=== PATIENT | male | born 1965 | race Caucasian/White ===

== ENCOUNTER → 2016-08-03 | Outpatient (CLI) | payer OTHER ==
[~2016-08-03] MED LIST: DICL1GEL28 TOP; ONDA4TAB7 SL
[2016-08-03 12:32] LABS: BASO % 0.7 %; BASO ABS # 0.05 K/uL (0-0.2); COMPLETE YES; EOS % 2.5 %; HEMATOCRIT 47.1 % (42-52); IG% 0.7 %; LYMPH % 27.7 %; LYMPH ABS # 1.91 K/uL (1.2-3.4); MEAN CELL VOLUME 87.5 fL (80-100); MEAN CORPUSCULAR HEMOGLOBIN 29.7 pg (25-34); MEAN PLATELET VOLUME 11.1 fL (7.4-10.4); MONO % 11.6 %; NEUT % 56.8 %; PLATELET COUNT 207 K/uL (130-400); RED BLOOD COUNT 5.38 M/uL (4.7-6.1); WHITE BLOOD COUNT 6.89 K/uL (4.8-10.8)
[2016-08-03 12:50] LABS: CHOLESTEROL/HDL RATIO 3.7; PROSTATE SPECIFIC ANTIGEN 0.792 ng/ml (0.000-4.000); THYROID STIMULATING HORMONE 1.45 uIu/ml (0.300-4.500)
[2016-08-03 13:24] LABS: ESTIMATED AVERAGE GLUCOSE 151 mg/dl; HA1C FLAG Normal (Normal)
== END | disposition home or self-care (01) ==
LOC: C.LABBFT 09:46
PROVIDERS: ATTEND Physician Assistant
DX: E78.00 Pure hypercholesterolemia, unspecified (principal); R79.89 Other specified abnormal findings of blood chemistry; K76.0 Fatty (change of) liver, not elsewhere classified; Z12.5 Encounter for screening for malignant neoplasm of prostate; E11.65 Type 2 diabetes mellitus with hyperglycemia

== ENCOUNTER → 2017-02-25 | Outpatient (CLI) | payer OTHER ==
[2017-02-25 12:35] LABS: BLOOD UREA NITROGEN 16 mg/dl (7-18); BUN/CREATININE RATIO 14.3 (10-20); CALCIUM 9.4 mg/dl (8.5-10.1); CARBON DIOXIDE 26 mmol/L (21-32); CHLORIDE 100 mmol/L (98-107); CREATININE 1.14 mg/dl (0.60-1.40); GLUCOSE 164 mg/dl (70-99); POTASSIUM 4.6 mmol/L (3.5-5.1); SODIUM 134 mmol/L (136-145)
[2017-02-25 12:36] LABS: ALB/GLOB RATIO 1.2 (0.9-2); ALKALINE PHOSPHATASE 66 U/L (45-117); ALT/SGPT 65 U/L (12-78); AST/SGOT 27 U/L (15-37); CHOLESTEROL 157 mg/dl (0-200); CHOLESTEROL/HDL RATIO 3.6; HDL CHOLESTEROL 44 mg/dl; LDL CHOLESTEROL CALCULATED 90 mg/dl; TRIGLYCERIDES 114 mg/dl (0-150); VERY LOW DENSITY LIPOPROT CALC 23 mg/dl
[2017-02-25 12:44] LABS: CREATININE RANDOM URINE 92.1 mg/dl
[2017-02-25 14:11] LABS: ESTIMATED AVERAGE GLUCOSE 166 mg/dl; HA1C FLAG Normal (Normal)
== END | disposition home or self-care (01) ==
LOC: C.LABBFT 09:13
PROVIDERS: ATTEND Physician Assistant
DX: E11.9 Type 2 diabetes mellitus without complications (principal); E78.00 Pure hypercholesterolemia, unspecified

== ENCOUNTER 2023-01-01 08:31 | Observation (INO) ==
--- NOTE | 2022-12-20 09:00 | PAT Medication Instructions ---
Medication Instructions Date of Service December 20, 2022 Home Medications Medication Instructions Recorded blood sugar diagnostic (batteriiTouch #3 ea 03/21/22 Verio test strips) lancets 33 gauge (OneTouch [place] #400 ea 03/21/22 Plus Lancet) pravastatin 20 mg tablet 20 mg PO HS 90 days #90 tabs 03/21/22 metformin 500 mg tablet,extended 1,000 mg PO BID 90 days #360 tabs 05/16/22 release 24 hr pravastatin 20 mg tablet 20 mg PO HS metformin 500 mg tablet,extended release 24 hr 1,000 mg PO BID lisinopril 5 mg tablet 5 mg PO QAM sitagliptin phosphate 100 mg tablet (Januvia) 100 mg PO QPM DO NOT take the morning of surgery lisinopril 5 mg tablet 5 mg PO QAM Take evening before surgery pravastatin 20 mg tablet 20 mg PO HS sitagliptin phosphate 100 mg tablet (Januvia) 100 mg PO QPM Other Notes NOTHING TO EAT OR DRINK AFTER MIDNIGHT. If you have any questions please call us at [phone] or [phone] or [phone] or [phone]
--- NOTE | 2022-12-21 10:23 | Anesthesiology Consultation ---
Date of Service December 21, 2022 Assessment & Plan (1) Encounter for pre-operative examination: - Check BSG AM DOS - Infectious disease screening: Per assessment on 12/21/22: No known infectious disease contacts or current infectious disease symptoms. No noted Covid positive test result in past 90 days. - Outpatient joint assessment: Pt currently scheduled for inpatient pathway. Patient scheduled for Right Unicompartmental Knee Versus TKA. If surgeon feels surgery can be done through outpatient pathway from his perspective, patient medically would be acceptable candidate for outpatient joint program from anesthesia standpoint pending surgeon's office assessment that patient is motivated, has good support and completes [facility] Program preop requirements. Chart Review Chart Review: Acceptable Risk for Surgery and Patient seen in Pre Admission Testing Teaching & Discussion Pre-Anesthesia Teaching/Discussion Notes: Instructed NPO after midnight before surgery,except medications with 15 cc of water. Medication instructions provided according to the PAT guidelines. History Surgery Operation Date: 01/01/23 12:30 Proposed Procedures p Right Unicompartmental Knee Versus - Mauri Barba MD s Total Knee Arthroplasty - Mauri Barba MD Height/Weight Height: 5 ft 10 in Weight: 101 kg Allergies Allergy/AdvReac Type Severity Reaction Status Date / Time celecoxib Allergy Intermediate Headache, Verified 12/20/22 13:36 shaking, nausea atorvastatin Allergy Unknown Unknown Verified 12/19/22 11:47 dulaglutide [From Trulicity] AdvReac Mild Nausea Verified 12/19/22 11:47 linagliptin [From Tradjenta] AdvReac Mild Nausea Verified 12/19/22 11:47 Medications Home Medications Medication Instructions Recorded Confirmed Last Taken blood sugar diagnostic (OneTouch #3 ea 03/21/22 07/11/22 Unknown Verio test strips) lancets 33 gauge (OneTouch [place]ica #400 ea 03/21/22 07/11/22 Unknown Plus Lancet) pravastatin 20 mg tablet 20 mg PO HS 90 days #90 tabs 03/21/22 12/19/22 Unknown metformin 500 mg tablet,extended 1,000 mg PO BID 90 days #360 tabs 05/16/22 12/19/22 Unknown release 24 hr lisinopril 5 mg tablet 5 mg PO QAM 12/19/22 12/19/22 Unknown sitagliptin phosphate 100 mg 100 mg PO QPM 12/19/22 12/19/22 Unknown tablet (Januvia) Wheeled Walker #1 ea 12/21/22 12/21/22 Unknown Past Medical History Medical History Diabetes NIDDM Fatty liver History of kidney stones Hypercholesterolemia Hypertension Overweight Exercise / Class Metabolic Activity II 4-5 Yardwork/Stairs/Walk up hill (one FS (no CP, no SOB)) Past Family History Family History Mother Guillain Lorenzana syndrome Diabetes Hyperlipidemia Stroke Father Myocardial infarction Glaucoma Grandfather Prostate cancer Other Coronary heart disease FH: CABG (coronary artery bypass surgery) No family history of adverse response to anesthesia Denies family history of Ovarian cancer Breast cancer Colorectal cancer Past Surgical History Surgical History History of anesthesia reaction "Difficulty waking" after right knee arthroscopy History of tooth extraction History of wisdom tooth extraction S/P right knee arthroscopy [facility], 2003 Past Anesthesia History No Family Hx of Anesthesia Complications and Other ("Difficulty waking" after right knee arthroscopy) History of PONV No Hx of PONV and No Hx of Motion Sickness Social History Smoking Status: Never smoker Do You Dip or Chew Tobacco: No (quit 2 yrs ago) Hx Alcohol Use: No Alcohol type: beer Hx Substance Use: No substance use type: does not use Review of Systems Patient denies chest pain, shortness of breath, dyspnea on exertion, fever, chi lls, cough, wheezing, palpitations. Physical Exam Vital Signs VITALS BP 132/76 P 68 TEMP 98.8 SP02 96%RA RESP 16 PHYSICAL Full cervical extension range of motion. Full TMJ range of motion. TMD 3 finger breaths Mallampati Score 3 Dentition: several missing molars, left lower side "repaired" Lungs: clear throughout to auscultation Cardiac: regular rate and rhythm, no murmurs noted Spine: normal Carotid arteries: negative bruit Extremities: no LE edema Large mehta- patient agreeable to trim short Lab Results Anesthesia Preop Results Results Anesthesia Widget: WBC 9.54 K/ul (4.8-10.8) 12/21/22 Hgb 15.2 g/dl (14.0-18.0) 12/21/22 Hct 45.3 % (42.0-52.0) 12/21/22 Plt 216 K/uL (130-400) 12/21/22 Na 139 mmol/L (136-145) 12/21/22 K 5.1 mmol/L (3.5-5.1) 12/21/22 Cl 104 mmol/L (98-107) 12/21/22 CO2 28 mmol/L (21-32) 12/21/22 BUN 17 mg/dl (6-23) 12/21/22 Creat 1.05 mg/dl (0.6-1.4) 12/21/22 Glucose Level 173 mg/dl (70-99(Fasting)) H 12/21/22 PT 11.0 Seconds (9.0-12.0) 12/21/22 PTT 26.9 Seconds (21.0-31.0) 12/21/22 INR 1.0 (0.9-1.1) 12/21/22 HA1c 7.6 % (4.5-5.6) H 12/21/22 Blood Type O Positive 12/21/22 Antibody Screen NEGATIVE 12/21/22 Testing Electrocardiogram Date: 12/21/22 NSR at 66bpm. Chest X-Ray Date: 12/21/22 FINDINGS: No lines and tubes are seen. The cardiomediastinal silhouette is normal. The lungs are clear. No evidence of pleural effusion or pneumothorax. IMPRESSION: No acute chest disease.
[~2023-01-01 08:31] MED LIST changes: +ACETAMINOPHEN 500 MG TAB PO SCH; +BUPIVACAINE 0.5 % 5 MG/1 ML PF 10ML VIAL ONE; +BUPIVACAINE LIPOSOME/PF 266 MG, BUPIVACAINE/EPINEPHRINE 50 ML, SODIUM CHLORIDE 0.9% PF ... INFIL SCH; -DICL1GEL28 TOP; +FAMOTIDINE 20 MG TAB PO SCH; +LR 500ML BOLUS, THEN 15ML/HR IV SCH; +LR 60ML/HR IV SCH; +METOCLOPRAMIDE HCL 10 MG TABLET PO SCH; -ONDA4TAB7 SL; +ROPIVACAINE 0.5% 5 MG/ML 30 ML VIAL ONE; +Scopolamine 1 MG TDSY TD SCH; +TRANEXAMIC ACID 1,000 MG **IV Intra-op IV SCH; +[UNRECOGNIZED DRUG - REMARK] SCH; +ceFAZolin 2000MG 2,000 MG/15 ML SYR IV SCH
--- NOTE | 2023-01-01 08:58 | History & Physical Bridge Note ---
Date of Service January 01, 2023 History & Physical Bridge Note I have examined the patient, reviewed the History & Physical and in the interval since the performance of the History & Physical I have noted the following changes of clinical significance: no changes noted
[2023-01-01] MEDS ORDERED: PROPOFOL IV EMULSION 10 MG/ML 20 ML VIAL IV ONE ×2 (09:48→10:07)
[2023-01-01] MEDS ORDERED: MIDAZOLAM HCL 1 MG/ML 2ML VIAL ONE (09:49)
[2023-01-01] MEDS ORDERED: fentaNYL citrate PF 100 MCG/2 ML VIAL ONE (09:49)
[2023-01-01] MEDS ORDERED: fentaNYL citrate PF 100 MCG/2 ML VIAL IV PRN (10:01)
[2023-01-01] MEDS ORDERED: ONDANSETRON INJ 2 MG/ML 2 ML VIAL IV PRN ×2 (10:01→13:36)
[2023-01-01] MEDS ORDERED: ePHEDrine sulfate 50 MG/ML AMP IV PRN (10:01)
[2023-01-01] MEDS ORDERED: ATROPINE SULFATE 0.1 MG/ML 10ML SYR IV PRN (10:01)
[2023-01-01] MEDS ORDERED: LIDOCAINE 2% 2 ML VIAL/AMP(20MG/ML) INFIL ONE (10:07)
[2023-01-01] MEDS ORDERED: BUPIVACAINE/EPINEPHRINE 0.25% 1:200,000 30 ML VIAL ONE (10:09)
[2023-01-01] MEDS ORDERED: SODIUM CHLORIDE 0.9% PF 50 ML VIAL ONE (10:10)
[2023-01-01] MEDS ORDERED: BUPIVACAINE LIPOSOME 1.3% 266 MG/20 ML VIAL ONE (10:10)
[2023-01-01] MEDS ORDERED: ePHEDrine sulfate 50 MG/5 ML SYR ONE (12:22)
--- NOTE | 2023-01-01 12:47 | Operative Report ---
PG Post Operative Report Pre & Post Diagnosis Operation Date: 01/01/23 10:40 Pre-Op Diagnosis: Right Knee Degenerative Joint Disease Post-Op Diagnosis: Right Knee Degenerative Joint Disease I identified the patient and participated in the time-out.: Yes Procedure Operation Date: 01/01/23 10:40 Actual Procedures p Right Unicompartmental Knee (Right) - Mauri Barba MD Surgeon Mauri Barba MD Records Technician Elvin De Dios PA-C Estimated Blood Loss 25 Findings Consistent with Post-Op Diagnosis Operative findings were advanced medial compartment arthritis. Full-thickness cartilage loss of the medial femoral condyle. Very mild trochlear wear. No significant in the lateral compartment. ACL was intact. Specimens Right knee sent for pathology. Anesthesia Type Spinal MAC Complications none Disposition Accompanied Patient To Recovery: No Indications Patient is a 57-year-old gentleman said he has several year history of increasing right medial knee pain discomfort. He had a previous knee arthroscopy. Has been to extensive conservative treatment. X-rays revealed some fairly mild radiographic DJD. MRI suggested extensive edema of the medial femoral condyle medial tibial plateau. He had a degenerate medial meniscus tear. The rest of his knee looked pretty good. His symptoms localized the medial side of his knee as patient is indicated for partial knee replacement. Description of Procedure Operative implants consist of: 1. Biomet [place] size medium femoral component. 2. Biomet [place] right medial size D tibial tray. 3. 5 mm mobile-bearing polyethylene insert. The patient was taken the operating, identified, placed on the operating table supine position. Contractors were properly padded. IV antibiotics tried by anesthesia team. Spinal anesthetic and abductor canal block had provided holding area. A right thigh tent was then placed. The right lower extremity then prepped draped in usual sterile fashion. The right leg was elevated exsanguinated with use of an Esmarch in terms playset 300 mmHg. An anterior process of the knee was then performed through a longitudinal incision beginning at the superior pole the patella and extending just medial to the tibial tubercle. Sharp dissection Through subcutaneous tissue. Subcutaneous tissue was mobilized. A medial parapatellar arthrotomy incision was made. Slight subperiosteal dissection was carried out medially. I did resect some of the fat pad. I then examined the knee and the medial compartment was fairly worn. Everything else looked pretty good so we proceeded with a partial knee replacement. The femur was then sized to a size medium femoral component. Some osteophytes were taken off the intercondylar notch area. The medium spoon was placed. The tibial cutting jig was then placed and attached to the medium spoon with a 4G clamp. Was secured in place with a single pin. The proximal tibial cut was made. The tibia was sized to a size D. Attention drawn the femur. The distal femur examined the sharp drill. Intramedullary yelena was placed. A medial femoral template was then placed with the ID tibial tray and a setting of 4. The holes were drilled for the femoral component. The posterior cutting guide was placed and the posterior cut was made. The 0 spigot was placed in the distal femur was milled. We then trialed the knee and the 5 feeler gauge fit appropriately in flexion and the 3 in extension. The 2 spigot was then placed in the distal femur was milled. We then trialed the knee again and the 5 insert fit appropriately in flexion extension. We elect to place these implants. The distal femur was then prepared. The posterior cutting guide was placed and posterior osteophytes removed. The anterior milling device was used to create the relief for the femoral component. The tibial tray was pinned in place and the toothbrush blade saw was used to create the keel for the tibial component. The then knee was irrigated. I then trialed the knee 1 more time and the 5 trial implant fit appropriately in flexion extension. All trial implants were removed. I irrigated the wound extensively. A double batch [place] G cement was mixed. A right medial size D tibial tray was then cemented in place followed by medium femoral component. The 5 feeler gauge was placed with the knee in about 45 degrees short of full extension till cement hardened. Final cement check was then performed. We trialed the knee 1 more time and the 5 insert of fit appropriately. The permanent 5 insert was placed. The wounds once again irrigated. I did inject locally with 100 cc of combination of 20 cc of Exparel, 30 cc normal saline, 50 cc of quarter percent Marcaine with epinephrine. Patient did receive 1 g tranexamic acid. The tourniquet was then let down for final tourniquet time of 73 minutes. Hemostasis assured use electrocautery. The wound was once again irrigated. Extensor mechanism then closed with #1 Vicryl suture in a [id number] fashion. The subcutaneous tissues then closed with 2 Dexon suture in buried interrupted fashion skin was closed skin rosalinda. Leg was then cleaned and dried and a sterile dressing was Xeroform, 4 fours, sterile cast padding, Jose bandage were applied. Patient then transferred to the recovery room in stable condition. Patient tolerated procedure well and there were no complications. Elvin De Dios, my physician portfolio assistant, was present for the entire procedure. His assistance was essential and required for appropriate patient positioning, prepping and draping, surgical exposure, performing the technical details of the operation, placement the implants, closure of the wound, and placement of the sterile bandage. I attest to the content of the Intraoperative Record and any orders documented therein. Any exceptions are noted below.
[2023-01-01] MEDS ORDERED: NALOXONE HCL 0.4 MG/1 ML VIAL/CARP IV PRN (13:36)
[2023-01-01] MEDS ORDERED: bisacodyL 10 MG SUPP PR PRN (13:36)
[2023-01-01] MEDS ORDERED: PHARMACY GLYCEMIC MGMT CONSULT PRN (13:36)
[2023-01-01] MEDS ORDERED: GLUCOSE 40% GEL 15 GM TUBE PO PRN (13:36)
[2023-01-01] MEDS ORDERED: METOCLOPRAMIDE HCL INJ 5 MG/ML 2 ML VIAL IV PRN (13:36)
[2023-01-01] MEDS ORDERED: DEXTROSE 50% 50 ML SYRINGE IV PRN (13:36)
[2023-01-01] MEDS ORDERED: diphenhydrAMINE Capsule 25 MG CAP PO PRN (13:36)
[2023-01-01] MEDS ORDERED: SODIUM CHLORIDE 0.9% 1,000 ML IV SCH (13:36)
[2023-01-01] MEDS ORDERED: TAMSULOSIN HCL 0.4 MG CAP PO PRN (13:36)
[2023-01-01] MEDS ORDERED: MAGNESIUM HYDROXIDE SUSP 30 ML UDC PO PRN (13:36)
[2023-01-01] MEDS ORDERED: HYDROmorphone INJ 0.5 MG/0.5 ML SYR IV PRN (13:36)
[2023-01-01] MEDS ORDERED: ALUMINUM/MAGNESIUM SUSP 30 ML UDC PO PRN (13:36)
[2023-01-01] MEDS ORDERED: CARBOHYDRATES FOR HYPOGLYCEMIA PO PRN (13:36)
[2023-01-01] MEDS ORDERED: GLUCOSE 10 TAB/TUBE PO PRN (13:36)
[2023-01-01] MEDS ORDERED: GLUCAGON FOR INJ 1 MG VIAL SQ PRN (13:36)
[2023-01-01] MEDS ORDERED: oxyCODONE HCL IR 5 MG TAB (IMMEDIATE RELEASE) PO PRN (13:36)
--- NOTE | 2023-01-01 13:40 | XRay Report ---
XR knee RT 1 or 2V routine CLINICAL HISTORY: Postoperative evaluation. COMPARISON: MRI of the right knee November 17, 2022. Right knee radiographs October 26, 2022. FINDINGS: Alignment of the medial compartment arthroplasty of the right knee is anatomic. There is n o periprosthetic fracture or unexpected radiopaque foreign body. There are skin rosalinda. IMPRESSION: Expected findings following medial compartment arthroplasty of the right knee. ACT 112: Negative or not required by law. Electronically signed by: Douglas French M.D. 01/01/2023 1:39 PM
[2023-01-01] MEDS: ACETAMINOPHEN 500 MG TAB PO SCH ×2 (14:17→21:34)
[2023-01-01] MEDS: LANTUS PER UNIT CHARGE SC SCH (14:25)
[2023-01-01] MEDS: INSULIN ASPART PER UNIT CHARGE SC SCH ×3 (14:26→21:32)
--- NOTE | 2023-01-01 14:29 | Pharmacy Report ---
Pharmacy Glycemic Short Note 2 - Date of Service January 01, 2023 - Glycemic Short BSG Results (Last 24 hours): 01/01/23 01/01/23 01/01/23 09:27 12:50 13:54 POC Glucose 177 H 151 H 164 H OUTPATIENT ANTIDIABETIC REGIMEN: * Januvia 100mg QPM * Metformin ER 1000mg BID * HbA1c 7.6% (12/21/22) ASSESSMENT: * Geovanni is a 57 YOM admitted status post right unicompartmental knee replacement with a history of diabetes. Pharmacy has been consulted for glycemic management while in patient. * Patient is receiving IV antibiotics preop and does not appear to have received any steroids * Fasting BSG was elevated this AM, will start basal insulin at ~0.1-0.2 units/kg * Novolog initiated at a weight based stress of 2 PLAN FOR INPATIENT GLYCEMIC CONTROL: * Hold outpatient oral diabetes medications * Basal insulin * Lantus 15 units SQ daily * Bolus insulin * NovoLog per scale ACHS or Q6hrs while NPO * Goal Range: Low 110 mg/dL - High 140 mg/dL * Correction Factor: 25 mg/dL/unit * Nutritional / Prandial insulin per carb ratio of 1 unit per 8 grams CHO consumed
--- NOTE | 2023-01-01 14:35 | Anesthesiology Progress Note ---
Date of Service January 01, 2023 Anesthesia Post Procedure Vital Signs Vital Signs: Temp Pulse Pulse Resp BP BP Pulse Ox 01/01/23 14:29 52 L 16 137/78 100 01/01/23 13:25 97.7 F 53 L 16 124/73 100 01/01/23 13:56 50 L 16 129/78 100 01/01/23 13:15 97.5 F L 55 L 12 123/56 L 100 01/01/23 13:05 55 L 11 L 123/62 100 01/01/23 12:55 55 L 16 104/63 99 01/01/23 12:46 96.8 F L 57 L 16 107/62 100 01/01/23 09:22 98.2 F 59 L 16 145/79 H 95 O2 Del Method O2 Flow Rate 01/01/23 14:29 Room Air 01/01/23 13:25 Room Air 01/01/23 13:56 Room Air 01/01/23 13:15 Room Air 01/01/23 13:05 Room Air 01/01/23 12:55 Room Air 01/01/23 12:46 Oxymask 2 01/01/23 09:22 Room Air Pain Intensity Right Knee: Pain Intensity: 8 Transfer of Care Handoff Completed per policy Notes Mental Status: alert / awake / arousable and participated in evaluation Patient Amnestic to Procedure: Yes Nausea / Vomiting: adequately controlled Pain: adequately controlled Airway Patency, RR, SpO2: stable & adequate BP & HR: stable & adequate Hydration State: stable & adequate Neuraxial Anesthesia: was administered and sensory block is resolving Anesthetic Complications: no major complications apparent and Pt Satisfied with anesthetic care
[2023-01-01] MEDS: KETOROLAC 30 MG/ML VIAL IV SCH ×2 (16:22→21:34)
[2023-01-01] MEDS: Scopolamine CHECK PATCH PLACEMENT SCH ×2 (16:22→23:32)
[2023-01-01] MEDS: ASCORBIC ACID 500 MG TAB PO SCH (17:52)
[2023-01-01] MEDS: ceFAZolin 2000MG 2,000 MG/15 ML SYR IV SCH (18:17)
[2023-01-01] MEDS ORDERED: TRANEXAMIC ACID / 0.7% NACL 1,000 MG/100 ML BAG IV SCH (18:45)
[2023-01-01] MEDS ORDERED: SITagliptin PHOSPHATE 100 MG TAB PO SCH (21:00)
[2023-01-01] MEDS ORDERED: SENNA 8.6 MG TAB PO SCH ×2 (21:00)
[2023-01-01] MEDS ORDERED: PRAVASTATIN SOD 20 MG TAB PO SCH (21:00)
[2023-01-01] MEDS: ASPIRIN 81 MG ECTAB PO SCH (21:34)
[2023-01-01] MEDS: DOCUSATE SODIUM 100 MG CAP PO SCH (21:34)
[2023-01-02] MEDS: ceFAZolin 2000MG 2,000 MG/15 ML SYR IV SCH (03:07)
[2023-01-02] MEDS: KETOROLAC 30 MG/ML VIAL IV SCH ×2 (03:07→10:38)
[2023-01-02 06:43] LABS: Hemoglobin 13.3 g/dl (14.0-18.0); Mean Corpuscular Hemoglobin 29.7 pg (25.0-34.0); Mean Corpuscular Volume 84.8 fL (80.0-100.0); Mean Platelet Volume 10.4 fL (9.4-12.4); Platelet Count 195 K/uL (130-400); RDW Coefficient of Variation 13.2 % (11.5-14.5); RDW Standard Deviation 41.1 fL (36.4-46.3); Red Blood Count 4.48 M/uL (4.70-6.10); White Blood Count 9.98 K/ul (4.8-10.8)
[2023-01-02 07:22] LABS: BUN Creatinine Ratio 11.9 (10-20); Calcium 8.5 mg/dl (8.6-10.3); Creatinine Clr Calc Pharmacy 79.1 ml/min; Est GFR (African American) 77.8 ml/min; Est GFR (Non-African American) 67.1 ml/min; Potassium 4.2 mmol/L (3.5-5.1)
--- NOTE | 2023-01-02 08:16 | Surgery Progress Note ---
Date of Service January 02, 2023 Assessment & Plan (1) Status post right partial knee replacement: Plan: 57-year-old gentleman postop day 1 from right partial knee replacement doing pretty well. Pain is controlled. He is neurologically intact. Plan: 1. DVT prophylaxis including thigh-high teds, SCDs, baby aspirin twice a day for the next 4 weeks. 2. PT OT. Weight-bear as tolerated. Right total knee protocol. 3. Pain control doing okay with current pain regimen. 4. Disposition plan to discharge home with some home health if he does okay in therapy today. Admission and Anticipated Discharge Date Admission Date: January 01, 2023 Subjective 57-year-old gentleman postop day 1 from a right partial knee replacement. He is doing well. Really not have much pain. Is been up and around. No chest pain or shortness of breath. Not feeling dizzy or lightheaded. Physical Exam Physical Exam: Physical examination of the right leg reveals the leg to be well aligned. Dressing is clean dry and intact he can dorsiflex and plantarflex his foot appropriately. He is neurologically intact. Respiratory: normal respiratory effort, lungs clear to auscultation Cardiovascular: RRR, no murmur, no edema Gastrointestinal (Abdomen): normal bowel sounds, soft, nontender, no hepatosplenomegaly Results & Data Vital Signs (Past 12 Hours) Vital Signs Temp Pulse Resp BP Pulse Ox O2 Del Method 01/02/23 07:32 36.9 C 53 L 16 125/75 97 Room Air 01/02/23 03:04 36.7 C 53 L 18 117/71 97 Room Air 01/01/23 22:13 36.7 C 51 L 16 120/70 96 Room Air 01/01/23 20:45 36.9 C 57 L 18 123/69 96 Room Air Laboratory Results Hemoglobin is 13.3. Hematocrit is 38.0. Electrolytes are stable. PG Care Time/CCT Total # of Minutes Spent Total Time Spent with Patient: Total time spent is greater than 50% in coordination of care (as documented) at patient's floor/unit and/or counseling patient: Coding Level of Care Code 98704 Post Operative Follow-Up Diagnoses Status post right partial knee replacement Z96.651
[2023-01-02] MEDS: ACETAMINOPHEN 500 MG TAB PO SCH (08:26)
[2023-01-02] MEDS: ASPIRIN 81 MG ECTAB PO SCH (08:27)
[2023-01-02] MEDS: ASCORBIC ACID 500 MG TAB PO SCH (08:27)
[2023-01-02] MEDS: DOCUSATE SODIUM 100 MG CAP PO SCH (08:27)
[2023-01-02] MEDS: Scopolamine CHECK PATCH PLACEMENT SCH (08:28)
[2023-01-02] MEDS: INSULIN ASPART PER UNIT CHARGE SC SCH (08:35)
[2023-01-02] MEDS: LANTUS PER UNIT CHARGE SC SCH (08:37)
[2023-01-02] MEDS ORDERED: lisinopril 5 MG TAB PO SCH (09:00)
[2023-01-02] MEDS ORDERED: MULTIVITAMIN TAB PO SCH (09:00)
== END 2023-01-02 11:37 | disposition home health service (06) ==
LOC: 3N 08:31 → ASU 08:31

== ENCOUNTER 2024-03-10 05:09 | Observation (INO) ==
--- NOTE | 2024-02-13 08:50 | PAT Medication Instructions ---
Medication Instructions Date of Service February 13, 2024 Home Medications Medication Instructions Recorded blood sugar diagnostic (OneTouch #270 ea 05/21/23 Verio test strips) lancets 33 gauge (OneTouch [place]ica #400 ea 05/21/23 Plus Lancet) pravastatin 20 mg tablet 20 mg PO HS 90 days #90 tabs 06/21/23 lisinopril 5 mg tablet 5 mg PO QAM 90 days #90 tabs 07/29/23 sitagliptin phosphate 100 mg 100 mg PO QPM 90 days #90 tabs 09/03/23 tablet (Januvia) metformin 500 mg tablet,extended 1,000 mg (2 x 500 mg) PO BID 30 10/31/23 release 24 hr days #360 tabs pravastatin 20 mg tablet 20 mg PO HS acetaminophen 500 mg tablet (Tylenol Extra Strength) 1,000 mg PO DIRECTED PRN Pain lisinopril 5 mg tablet 5 mg PO QAM sitagliptin phosphate 100 mg tablet (Januvia) 100 mg PO QPM metformin 500 mg tablet,extended release 24 hr 1,000 mg (2 x 500 mg) PO BID diclofenac sodium 1 % topical gel (Voltaren Arthritis Pain) 2 g topical QID PRN Pain empagliflozin 25 mg tablet (Jardiance) 25 mg PO QAM STOP taking 24 hours before surgery diclofenac sodium 1 % topical gel (Voltaren Arthritis Pain) 2 g topical QID PRN Pain STOP taking 3 days before surgery empagliflozin 25 mg tablet (Jardiance) 25 mg PO QAM DO NOT take the morning of surgery lisinopril 5 mg tablet 5 mg PO QAM metformin 500 mg tablet,extended release 24 hr 1,000 mg (2 x 500 mg) PO BID Take morning of surgery With a small sip of water, OTHERWISE NOTHING TO EAT OR DRINK AFTER MIDNIGHT: acetaminophen 500 mg tablet (Tylenol Extra Strength) 1,000 mg PO DIRECTED PRN Pain (if needed) Take evening before surgery pravastatin 20 mg tablet 20 mg PO HS acetaminophen 500 mg tablet (Tylenol Extra Strength) 1,000 mg PO DIRECTED PRN Pain (if needed) sitagliptin phosphate 100 mg tablet (Januvia) 100 mg PO QPM metformin 500 mg tablet,extended release 24 hr 1,000 mg (2 x 500 mg) PO BID Other Notes If you have any questions please call us at [phone] or [phone] or [phone] or [phone]
--- NOTE | 2024-02-20 13:36 | Anesthesiology Consultation ---
Date of Service February 20, 2024 Assessment & Plan (1) Encounter for pre-operative examination: - Check BSG DOS - Infectious disease screening: Per assessment on 02/20/24- No known recent infectious disease contacts or current infectious disease symptoms. - Outpatient joint assessment: Pt currently scheduled for inpatient pathway. If surgeon requests review for outpatient joint pathway, patient is not recommended candidate for outpatient joint program from anesthesia standpoint based on available information. - S/P Right knee unicompartment replacement (01/01/23): SAB at L3-4, 1 attempt + regional at [facility] Chart Review Chart Review: Acceptable Risk for Surgery and Patient seen in Pre Admission Testing Teaching & Discussion Pre-Anesthesia Teaching/Discussion Notes: Instructed NPO after midnight before surgery,except medications with 15 cc of water. Medication instructions provided according to the PAT guidelines. History Surgery Operation Date: 03/10/24 12:30 Proposed Procedures p Left Unicompartmental Knee Versus - Mauri Barba MD s Total Knee Arthroplasty - Mauri Barba MD Height/Weight Height: 5 ft 10 in Weight: 97 kg Allergies Allergy/AdvReac Type Severity Reaction Status Date / Time celecoxib Allergy Intermediate Headache, Verified 02/13/24 07:34 shaking, nausea atorvastatin AdvReac Severe Muscle Pain Verified 02/13/24 07:34 dulaglutide [From Trulicity] AdvReac Mild Nausea Verified 02/13/24 07:34 linagliptin [From Tradjenta] AdvReac Mild Nausea Verified 02/13/24 07:34 Medications Home Medications Medication Instructions Recorded Confirmed Last Taken blood sugar diagnostic (OneTouch #270 ea 05/21/23 02/20/24 Unknown Verio test strips) lancets 33 gauge (OneTouch Delica #400 ea 05/21/23 02/20/24 Unknown Plus Lancet) pravastatin 20 mg tablet 20 mg PO HS 90 days #90 tabs 06/21/23 02/20/24 07/27/23 acetaminophen 500 mg tablet 1,000 mg PO DIRECTED PRN Pain 07/28/23 02/20/24 Unknown (Tylenol Extra Strength) lisinopril 5 mg tablet 5 mg PO QAM 90 days #90 tabs 07/29/23 02/20/24 Unknown sitagliptin phosphate 100 mg 100 mg PO QPM 90 days #90 tabs 09/03/23 02/20/24 Unknown tablet (Januvia) metformin 500 mg tablet,extended 1,000 mg (2 x 500 mg) PO BID 30 10/31/23 02/20/24 Unknown release 24 hr days #360 tabs diclofenac sodium 1 % topical gel 2 g topical QID PRN Pain 01/14/24 02/20/24 Unknown (Voltaren Arthritis Pain) empagliflozin 25 mg tablet 25 mg PO QAM 02/13/24 02/20/24 Unknown (Jardiance) Past Medical History Medical History Diabetes mellitus, type 2 NIDDM Dyshidrotic eczema Per records Fatty liver History of kidney stones No surgical intervention, pt passed on own Hx of syncope 07/2023, evaluated at [facility] ER, unknown etiology > No recurrence/issues since Per [facility] PCP 07/29/23, t/c further evaluation if recurrence occurs Hyperlipidemia Hypertension Osteoarthritis Exercise / Class Metabolic Activity II 4-5 Yardwork/Stairs/Walk up hill (one FS: No CP, no SOB) Past Family History Family History Mother Guillain Lorenzana syndrome Diabetes Hyperlipidemia Stroke Father Myocardial infarction Glaucoma Grandfather Prostate cancer Other Coronary heart disease FH: CABG (coronary artery bypass surgery) No family history of adverse response to anesthesia Denies family history of Ovarian cancer Breast cancer Colorectal cancer Past Surgical History Surgical History History of anesthesia reaction "Difficulty waking" after right knee arthroscopy History of tooth extraction History of wisdom tooth extraction x1 only S/P right knee arthroscopy [facility], 2003 S/P right unicompartmental knee replacement Right knee unicompartment replacement (01/01/23): SAB at L3-4, 1 attempt + regional at [facility] Past Anesthesia History No Family Hx of Anesthesia Complications and Other ("Difficulty waking" after ri ght knee arthroscopy, post-op constipation) History of PONV No Hx of PONV and No Hx of Motion Sickness Social History Smoking Status: Never smoker Do You Dip or Chew Tobacco: No (quit 2020) Hx Alcohol Use: No Hx Substance Use: No substance use type: does not use Review of Systems Patient denies chest pain, shortness of breath, dyspnea on exertion, fever, chills, cough, wheezing, palpitations. Physical Exam Vital Signs BP 124/71 P 71 TEMP 97.9 SP02 96%RA RESP 16 Physical Full cervical extension range of motion. Full TMJ range of motion. TMD 3 finger breaths Mallampati Score I Dentition: missing molars Lungs: clear throughout to auscultation Cardiac: regular rate and rhythm, no murmurs noted Spine: normal Carotid arteries: negative bruit Extremities: no LE edema + mehta Lab Results Anesthesia Preop Results Results Anesthesia Widget: WBC 9.41 K/ul (4.8-10.8) 02/20/24 Hgb 16.1 g/dl (14.0-18.0) 02/20/24 Hct 47.5 % (42.0-52.0) 02/20/24 Plt 232 K/uL (130-400) 02/20/24 Na 140 mmol/L (136-145) 02/20/24 K 4.5 mmol/L (3.5-5.1) 02/20/24 Cl 105 mmol/L (98-107) 02/20/24 CO2 25 mmol/L (21-32) 02/20/24 BUN 19 mg/dl (6-23) 02/20/24 Creat 1.13 mg/dl (0.6-1.4) 02/20/24 Glucose Level 83 mg/dl (70-99(Fasting)) 02/20/24 PT 10.8 Seconds (9.0-12.0) 02/20/24 PTT 27 Seconds (21-31) 02/20/24 INR 1.0 (0.9-1.1) 02/20/24 HA1c 6.7 % (4.5-5.6) H 02/20/24 Blood Type O Positive 02/20/24 Antibody Screen NEGATIVE 02/20/24 Testing Electrocardiogram Date: 07/28/23 NSR at 83bpm. LAD. Chest X-Ray Date: 07/28/23 FINDINGS: There are low lung volumes. No pneumothorax. No pleural fusions. The correct silhouette is mildly enlarged. No focal lung consolidations to suggest a pneumonia. No evidence for pulmonary edema. No acute fractures. IMPRESSION: Mild cardiomegaly. Otherwise, no acute process within the chest.
[2024-03-10] MEDS: FAMOTIDINE 20 MG TAB PO SCH (05:57)
[2024-03-10] MEDS: dexAMETHasone**PF** 10 MG/ML VIAL IV SCH (05:57)
[2024-03-10] MEDS: METOCLOPRAMIDE HCL 10 MG TABLET PO SCH (05:57)
[2024-03-10] MEDS: SODIUM CHLORIDE 0.9% 1,000 ML IV SCH (05:57)
[2024-03-10] MEDS: ACETAMINOPHEN 500 MG TAB PO SCH ×2 (05:57→13:54)
[2024-03-10] MEDS ORDERED: ALLERGY Noted to ORDERED Medication SCH (06:00)
[2024-03-10] MEDS ORDERED: LR 60ML/HR IV SCH (06:00)
[2024-03-10] MEDS ORDERED: LR 500ML BOLUS, THEN 15ML/HR IV SCH (06:00)
[2024-03-10] MEDS ORDERED: CeleBREX 200 MG CAP PO SCH (06:00)
[2024-03-10] MEDS ORDERED: PROPOFOL IV EMULSION 10 MG/ML 20 ML VIAL IV ONE (06:04)
[2024-03-10] MEDS ORDERED: MIDAZOLAM HCL 1 MG/ML 2ML VIAL ONE (06:06)
[2024-03-10] MEDS ORDERED: DexMEDEtomidine HCL IV 100 MCG/ML VIAL IV ONE (06:19)
[2024-03-10] MEDS ORDERED: ROPIVACAINE 0.5% 5 MG/ML 30 ML VIAL ONE (06:22)
[2024-03-10] MEDS ORDERED: LIDOCAINE 2% 2 ML VIAL/AMP(20MG/ML) INFIL ONE (06:23)
[2024-03-10] MEDS ORDERED: ePHEDrine sulfate 50 MG/ML AMP IV PRN (06:42)
[2024-03-10] MEDS ORDERED: ATROPINE SULFATE 0.1 MG/ML 10ML SYR IV PRN (06:42)
[2024-03-10] MEDS ORDERED: fentaNYL citrate PF 100 MCG/2 ML VIAL IV PRN (06:42)
[2024-03-10] MEDS ORDERED: HYDROmorphone INJ 1 MG/ML SYRINGE IV PRN (06:42)
[2024-03-10] MEDS ORDERED: ONDANSETRON INJ 2 MG/ML 2 ML VIAL IV PRN ×2 (06:42→10:10)
--- NOTE | 2024-03-10 06:56 | History & Physical Bridge Note ---
Date of Service March 10, 2024 History & Physical Bridge Note I have examined the patient, reviewed the History & Physical and in the interval since the performance of the History & Physical I have noted the following changes of clinical significance: no changes noted
[2024-03-10] MEDS: ceFAZolin 2000MG 2,000 MG/15 ML SYR IV SCH ×2 (07:00→15:45)
[2024-03-10] MEDS: ROPIV 0.5% 246mg, Ketorolac 30mg, EPINEPHrine 0.5mg in NSS INFIL SCH (07:39)
[2024-03-10] MEDS: ORTHO JOINT ANESTHETIC ONE (07:40)
[2024-03-10] MEDS: TRANEXAMIC ACID 1,000 MG **IV Intra-op IV SCH (08:18)
--- NOTE | 2024-03-10 09:02 | Operative Report ---
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 The rest of his knee joint looked quite pristine with minimal arthritic change. His ACL was intact. Specimens Left knee sent for pathology. Anesthesia Type Spinal MAC Complications none Disposition Accompanied Patient To Recovery: No Indications The patient is a 58-year-old fairly active gentleman whose had a several year history of increasing knee pain and discomfort. He had a right partial knee replacement a little over a year ago and is done well from this. Over the past 6 months patient felt increased pain and discomfort in the medial side of his left knee. They did do conservative care which provided very temporary relief only. X-rays show progressive medial compartment arthritis. He did have an MRI showed advanced medial compartment disease. The rest of his knees look pretty good. He elected proceed with partial knee replacement. Description of Procedure Operative implants consist of: 1. Biomet [place] medium femoral component. 2. Biomet [place] left medial size D tibial tray. 3. 5 mm mobile-bearing polyethylene insert. The patient was taken the op room, identified, placed on the operating table in the supine position. All contact areas were appropriately padded. IV antibiotics were provided by the anesthesia team. A spinal anesthetic and adductor canal block had been provided in the holding area. A left thigh turn was then placed to the left lower extremity was then prepped and draped in usual sterile fashion. The left leg was elevated and exsanguinated with use of an Esmarch and a tourniquet was placed at 300 mmHg. An anterior approach left knee was then performed through a longitudinal incision beginning just superior to the superior border of the patella and extending just medial to the tibial tubercle. Sharp dissection was Through subcutaneous tissue down the extensor mechanism. A medial parapatellar arthrotomy incision was made. Some slight subperiosteal dissection was carried out medially taking great care to protect the MCL. The fat pad was resected. I then examined the knee and the lateral and patellofemoral compartments looked quite pristine. The medial compartment was worn. We elected proceed with a partial knee replacement. The femur was then sized to a size medium. The medium spoon was placed and attached to the tibial cutting guide. The 4G clamp was used. The tibial tray/cutting guide was placed and pinned into position. The proximal tibial cut was made. The tibia sized to a size D. Attention drawn the femur. We did place the D tray and the 4 feeler gauge fit quite well in the 5 weeks just a little bit snug. The distal femur was under sharp drill. Intramedullary yelena was placed. The femoral cutting guide was then placed and attached to the IM yelena. The holes were drilled for the femoral component. The posterior cutting guide was placed and the posterior cut was made. I then resected the medial meniscus. The 0 spigot was used to milled the distal femur. We then trialed the knee and the 5 feeler gauge fit well in flexion and the to in extension. We then elected to use the 3 of milling device milled the distal femur. We then trialed again and the 5 insert fit appropriately in flexion extension. We elect to place these implants. All trial implants were removed. I did use the milling device anteriorly and the osteotome and posteriorly were created additional room for the femoral component. The cement drill was used to drill some holes in the femur. The tibial tray was pinned in position. The toothbrush blade saw was used to create the defect for the tibial tray. We then trialed the knee 1 more time and the 5 insert fit appropriately. All other implants seem to fit perfectly. We elect to place all these implants. The wound was irrigated with copious amounts of pulsatile lavage solution. We did inject locally with 100 cc of half percent Marcaine with epinephrine. A single batch [place] G cement was mixed. A left medial size D tibial tray was then cemented in position followed by a medium femoral component. I then used a 6 feeler gauge to compress the implants and pressurized the cement. Once the cement hardened the final cement check was then performed. We then trialed the knee and the 5 insert fit most appropriately. The permanent [address] aced. We then irrigated the knee extensively. The tourniquet was let down for turn time 68 minutes. Hemostasis assured use electrocautery. The extensor Metros then closed with #1 Vicryl suture in a [id number] fashion. Extensor Meclomen checked found to be intact and subcutaneous tissue was then closed with 2-0 Dexon suture in a buried interrupted fashion skin was closed skin rosalinda. Leg was then cleaned and dried and sterile dressed with Xeroform, 4 fours, sterile cast padding and Jose bandage were applied. Patient then transferred to the recovery room in stable condition. Patient tolerated procedure well and there were no complications. Elvin De Dios, my physician office manager executive assistant, was present for the entire procedure. His assistance was essential and required for appropriate patient positioning, prepping and draping, surgical exposure, performing the technical details of the operation, placement the implants, closure of the wound, and placement of the sterile bandage. I attest to the content of the Intraoperative Record and any orders documented therein. Any exceptions are noted below.
--- NOTE | 2024-03-10 09:24 | XRay Report ---
XR knee LT 1 or 2V routine CLINICAL HISTORY: Surgical Post Op TECHNIQUE: 2 views of the left knee were obtained. Comparison: Comparison is made to knee radiographs 01/29/2022 FINDINGS: Expected postoperative appearance status post placement of medial knee hemiarthroplasty. IMPRESSION: Expected postoperative appearance status post placement of knee arthroplasty. ACT 112: Negative or not required by law. Electronically signed by: Oswaldo Head M.D. 03/10/2024 9:22 AM
--- NOTE | 2024-03-10 09:31 | Anesthesiology Progress Note ---
Date of Service March 10, 2024 Anesthesia Post Procedure Vital Signs Vital Signs: Temp Pulse Pulse Resp BP Pulse Ox O2 Del Method 03/10/24 09:20 36.4 C L 68 15 114/50 L 99 Room Air 03/10/24 09:10 68 19 103/60 96 Room Air 03/10/24 09:00 72 17 103/60 100 Oxymask 03/10/24 08:54 36.0 C L 78 11 L 107/61 97 Oxymask 03/10/24 05:37 36.6 C 60 18 140/77 97 Room Air O2 Flow Rate 03/10/24 09:20 03/10/24 09:10 03/10/24 09:00 4 03/10/24 08:54 4 03/10/24 05:37 Pain Intensity Left Knee: Pain Intensity: 4 Transfer of Care Handoff Completed per policy Notes Mental Status: alert / awake / arousable and participated in evaluation Patient Amnestic to Procedure: Yes Nausea / Vomiting: adequately controlled Pain: adequately controlled Airway Patency, RR, SpO2: stable & adequate BP & HR: stable & adequate Hydration State: stable & adequate Anesthetic Complications: no major complications apparent and Pt Satisfied with anesthetic care
[2024-03-10] MEDS ORDERED: diphenhydrAMINE Capsule 25 MG CAP PO PRN (10:10)
[2024-03-10] MEDS ORDERED: GLUCOSE 40% GEL 15 GM TUBE PO PRN (10:10)
[2024-03-10] MEDS ORDERED: GLUCOSE 10 TAB/TUBE PO PRN (10:10)
[2024-03-10] MEDS ORDERED: CARBOHYDRATES FOR HYPOGLYCEMIA PO PRN (10:10)
[2024-03-10] MEDS ORDERED: MAGNESIUM HYDROXIDE SUSP 30 ML UDC PO PRN (10:10)
[2024-03-10] MEDS ORDERED: EMPAGLIFLOZIN 25 MG TAB PO SCH (10:10)
[2024-03-10] MEDS ORDERED: DEXTROSE 50% 50 ML SYRINGE IV PRN (10:10)
[2024-03-10] MEDS ORDERED: ALUMINUM/MAGNESIUM SUSP 30 ML UDC PO PRN (10:10)
[2024-03-10] MEDS ORDERED: GLUCAGON FOR INJ 1 MG VIAL SQ PRN (10:10)
[2024-03-10] MEDS ORDERED: NALOXONE HCL 0.4 MG/1 ML VIAL/CARP IV PRN (10:10)
[2024-03-10] MEDS ORDERED: bisacodyL 10 MG SUPP PR PRN (10:10)
[2024-03-10] MEDS ORDERED: PHARMACY GLYCEMIC MGMT CONSULT PRN (10:10)
[2024-03-10] MEDS ORDERED: HYDROmorphone INJ 0.5 MG/0.5 ML SYR IV PRN (10:10)
[2024-03-10] MEDS ORDERED: METOCLOPRAMIDE HCL INJ 5 MG/ML 2 ML VIAL IV PRN (10:10)
[2024-03-10] MEDS ORDERED: oxyCODONE HCL IR 5 MG TAB (IMMEDIATE RELEASE) PO PRN (10:10)
[2024-03-10] MEDS: CeleBREX 200 MG CAP PO SCH (10:11)
[2024-03-10] MEDS ORDERED: LANTUS PER UNIT CHARGE SC ONE (10:45)
--- NOTE | 2024-03-10 10:56 | Pharmacy Report ---
Pharmacy Glycemic Short Note 2 - Date of Service March 10, 2024 - Glycemic Short BSG Results (Last 24 hours): 03/10/24 03/10/24 05:48 08:59 POC Glucose 180 H 204 H OUTPATIENT ANTIDIABETIC REGIMEN: * Metformin 1000 mg BID, Jardiance 25 mg daily, Januvia 100 mg daily * A1c .7% 02/20/24 ASSESSMENT: * Patient admitted s/p left TKA, 10 mg of IV dexamethasone received preop, additional 10 mg IV ongoing daily * BSGs 180-204 mg/dL this morning- will give ~.26 mg/kg basal dose now- additional dose per scale later today * Will begin novolog parameters at weight based stress of 3 given steroid and already elevated BSGs * Overnight checks PLAN FOR INPATIENT GLYCEMIC CONTROL: * Hold outpatient oral diabetes medications * Basal insulin * Lantus 25 units SQ now- additional this evening if BSGs remain elevated (up to ~.47 mg/kg) * Bolus insulin * NovoLog per scale ACHS or Q6hrs while NPO * Goal Range: Low 110 mg/dL - High 140 mg/dL * Correction Factor: 15 mg/dL/unit * Nutritional / Prandial insulin per carb ratio of 1 unit per 6 grams CHO consumed
[2024-03-10] MEDS: TAMSULOSIN HCL 0.4 MG CAP PO SCH (12:41)
[2024-03-10] MEDS: MULTIVITAMIN TAB PO SCH (12:41)
[2024-03-10] MEDS: ASPIRIN 81 MG ECTAB PO SCH (12:42)
[2024-03-10] MEDS: lisinopril 5 MG TAB PO SCH (12:44)
[2024-03-10] MEDS: DOCUSATE SODIUM 100 MG CAP PO SCH (12:51)
[2024-03-10] MEDS: INSULIN ASPART PER UNIT CHARGE SC SCH (12:52)
[2024-03-10] MEDS: SENNA 8.6 MG TAB PO SCH (12:52)
[2024-03-10] MEDS: POLYETHYLENE (MIRALAX) 17 GM PACK PO SCH (12:52)
[2024-03-10] MEDS ORDERED: Nursing to Pharmacy Communication SCH (13:15)
[2024-03-10] MEDS: LANTUS PER UNIT CHARGE SC ONE ×2 (13:54→21:06)
[2024-03-10] MEDS: ASCORBIC ACID 500 MG TAB PO SCH (15:45)
[2024-03-10] MEDS: TRANEXAMIC ACID / 0.7% NACL 1,000 MG/100 ML BAG IV SCH (15:45)
[2024-03-10] MEDS: KETOROLAC 30 MG/ML VIAL IV SCH (15:47)
[2024-03-10] MEDS ORDERED: SITagliptin PHOSPHATE 100 MG TAB PO SCH (21:00)
[2024-03-10] MEDS ORDERED: SENNA 8.6 MG TAB PO SCH (21:00)
[2024-03-10] MEDS: PRAVASTATIN SOD 20 MG TAB PO SCH (21:05)
[2024-03-11] MEDS: INSULIN ASPART PER UNIT CHARGE SC SCH (02:12)
[2024-03-11 07:20] VITALS: BP 135/79; PULSE 62; RESP 18; TEMP 97.9; O2SAT 96
[2024-03-11] MEDS: dexAMETHasone 10 MG in SYRINGE 0 ML IV SCH (07:29)
[2024-03-11 08:05] LABS: Hematocrit (blood only) 40.5 % (42.0-52.0); Hemoglobin 13.8 g/dl (14.0-18.0); Mean Corpuscular Hemoglobin 28.6 pg (25.0-34.0); Mean Corpuscular Hgb Conc 34.1 g/dL (32.0-36.0); Mean Platelet Volume 10.8 fL (9.4-12.4); Platelet Count 177 K/uL (130-400); RDW Coefficient of Variation 13.1 % (11.5-14.5); RDW Standard Deviation 39.9 fL (36.4-46.3); Red Blood Count 4.82 M/uL (4.70-6.10); White Blood Count 12.06 K/ul (4.8-10.8)
[2024-03-11 08:15] LABS: BUN Creatinine Ratio 18.3 (10-20); Calcium 8.8 mg/dl (8.6-10.3); Creatinine Clr Calc Pharmacy 79.5 ml/min
--- NOTE | 2024-03-11 10:53 | Orthopedic Progress Note ---
Date of Service March 11, 2024 Assessment & Plan (1) Status post left partial knee replacement: Plan: 58-year-old gentleman now postop day 1 from left partial knee replacement doing well. Pains controlled. He is neurologically intact. He is getting along q uite well. Plan: 1. DVT prophylaxis including thigh-high teds, SCDs, aspirin twice a day. 2. PT/OT. He can weight-bear as tolerated. Left total knee protocol. 3. Pain control doing well with current pain regimen. 4. Disposition. Plan is to discharge to home with home health after therapy today. (2) Hyperlipidemia: (3) Hypertension: (4) History of kidney stones: (5) Diabetes mellitus, type 2: Admission and Anticipated Discharge Date Admission Date: March 10, 2024 Subjective 58-year-old gentleman postop day 1 from a left partial knee replacement. He is doing quite well. Had a good night. Pains controlled. He has been walking the hallways with a walker without difficulty. No chest pain or shortness of breath. Not feeling dizzy or lightheaded. Physical Exam Physical Exam: Physical nation was a pleasant middle-age male. Days lying in bed looks quite comfortable. Examination of the left leg reveals leg to be well aligned. Dressings clean dry and intact. He can dorsiflex and plantarflex his foot appropriately. He is got a good straight leg raise. Respiratory: normal respiratory effort, lungs clear to auscultation Cardiovascular: RRR, no murmur, no edema Gastrointestinal (Abdomen): normal bowel sounds, soft, nontender, no hepatosplenomegaly Results & Data Vital Signs (Past 12 Hours) Vital Signs Temp Pulse Resp BP Pulse Ox O2 Del Method 03/11/24 07:19 36.6 C 62 18 135/79 96 Room Air 03/11/24 07:15 Room Air 03/11/24 04:31 36.5 C 59 L 16 111/66 98 Room Air 03/11/24 01:00 36.4 C L 62 16 110/58 L 94 Room Air Laboratory Results Hemoglobin is 13.8. Hematocrit is 40.5. Electrolytes are stable.
[2024-03-11] MEDS: LANTUS PER UNIT CHARGE SC ONE (11:15)
--- NOTE | 2024-03-13 07:46 | Discharge Summary ---
Date of Service March 13, 2024 Principal Diagnosis Same as "Discharge Diagnosis" noted below under Discharge Instructions. Discharge Data Procedures Performed Operation Date: 03/10/24 07:00 Actual Procedures p Left Unicompartmental Knee (Left) - Mauri Barba MD Ordered Studies 03/10/24 05:00 US - OR guided needle placemen Routine Hospital Course (1) Status post left partial knee replacement: This is a 58 year old patient admitted on 03/10/24 and underwent partial knee replacement. He tolerated the procedure well and there were no complications. Transferred to the PACU post op and later to the orthopedic floor for further care. He was given ancef for antibiotic prophylaxis. He was also given HUONG stockings, SCDs, and aspirin for DVT prophylaxis. Hemoglobin, hematocrit, and vital signs were monitored during his hospital stay and remained stable. Did not require any blood transfusions. There were no complications during his hospital stay. By post op day #1 the patient was tolerating a diabetic diet, pain was reasonably controlled with oral pain medicine, and he was participating in physical therapy. On post op day #1 the patient was discharged home and set up with home health care. He was given printed discharge instructions including prescriptions for extra strength tylenol, aspirin, cefadroxil, ketorolac, zofran, oxycodone, senokot, and flomax. Continue physical therapy, weight bearing as tolerated. Continue HUONG stockings. Follow up approximately 2 weeks post op or sooner if there are problems or concerns. Discharge Plan Discharge Items Patient Disposition: Home - Home Health Services Reason For Visit: Left Knee Osteoarthritis Discharge Diagnosis: Left Partial Knee Replacement Activity: Per Instructions section Weightbearing: Full weightbearing Non-emergency contact: Surgeon Call non-emergency contact if: you have any medication questions Follow-up/Referrals: Nina Dai MD [Primary Care Provider] - Diet: Carb Consistent or DM2 Addtl Attending Provider Instructions: ACTIVITY RECOMMENDATIONS: Diet: * You may resume previous diet. Physical Therapy: * You will go to physical therapy three times each week for four to six weeks after your surgery in order to regain your knee range of motion and to retrain your knee to work properly. * It is just as important to make sure you are getting your knee perfectly straight as it is to regain your knee bend. * Taking a pain pill an hour before therapy can help you have a more productive and comfortable therapy session. Home Exercise: * You were shown a series of exercises (heel props, heel slides, etc.) in the hospital. Do these exercises three to four times each day including the exercises you were shown in physical therapy. Walking: * Get up and walk several times each day. For the first four weeks, try not to stand or walk for more than one hour at a time. If you do stand or walk for more than one hour, you will not hurt anything, but your knee and leg will likely swell. * As you feel comfortable, you may change from the walker or crutches to a cane and then to independent walking. MEDICATIONS: New Medicine: * You will likely be taking one or more of these medications: 1. Oxycodone - A quick and shorter-acting pain medication. Take one to two tablets every six hours to lessen your pain. 2. Aspirin - Thins your blood to lessen the chance of forming a blood clot. * The most common side effects of pain medicine and iron are nausea and constipation. If nausea or constipation is too much of a problem or if you have any questions about your new medicines or doses, call [facility] at . We will try to help you manage these issues. "VERY IMPORTANT TO READ AND REVIEW" Pain: * The immediate post-operative period after knee replacement surgery is often quite painful. * You are given a prescription for pain medicine. You should take it, as directed, when you need it, especially before physical therapy and before going to bed. Pain that interferes with sleep is very common and can last several months. * You will likely need pain medicine for the first four to six weeks. It will not stop all of the pain. The pain will lessen and as you feel better, you may change to milder pain medicine such as Tylenol. * The most common side effects of pain medicine are nausea and constipation, so don't take more than you need. SPECIAL CARE INSTRUCTIONS: TEDs/Elastic Stockings: * The white elastic stockings help limit swelling and prevent blood clots from forming in your legs. The more you wear them, the more they work. * Wear them for six weeks after knee replacement surgery and four weeks after partial knee replacement. Incision Site Care: * Remove dressing postoperative day 2 and then shower. Keep direct shower pressure off the incision site. * After showering, cover rosalinda with dry gauze and change daily or more frequently if the dressing is getting saturated with drainage. * Use the HUONG stockings to hold dressing in place. DO NOT apply tape on the skin. * May completely stop using bandage if wound is dry and no drainage * [place] are removed between 2 and 3 weeks post-op. If your follow-up appointment is made before 2 weeks, please have your appointment re- scheduled. It is too early to remove the rosalinda. Prevention of Infection: * Take antibiotics one hour before any dental cleaning, dental work, urological procedure, gastrointestinal procedure or any invasive surgery in order to prevent your new joint from getting infected. * You may get the antibiotics from the doctor performing the procedure or you may call our office at [phone] before and we will call in a prescription to the pharmacy of your choice. Things to Watch For: * Drainage from the incision site that occurs more than one week after your surgery. * Severely increased knee/leg pain or swelling. * Increased redness at the incision site. * Fever above 102 degrees Fahrenheit. * Unusual chest pain or shortness of breath. * Unusual pain or burning with urination. Call [facility] at [phone] with any of the above problems or if you have any questions about your medicines or recovery. FOLLOW UP VISIT: Make an appointment to see your doctor for approximately two weeks after surgery for a progress check and staple removal by calling the office at [phone]. Pending Studies at Discharge: No Stand-Alone Forms: My [facility], Smoking Cessation Medications and DC Order Prescriptions: Continued (DME) OneTouch Verio test strips Strip See Dose Instructions .ROUTE .MEDSUPPLY Qty: 270 3RF Dose Instruction: As directed Rx Instructions: Test blood sugar TID and PRN E11.65 (DME) lancets [OneTouch Delica Plus Lancet] 33 gauge misc See Dose Instructions .ROUTE .MEDSUPPLY Qty: 400 3RF Dose Instruction: As directed Rx Instructions: Test blood sugar TID and PRN pravastatin 20 mg tablet 20 mg PO HS 90 Days Qty: 90 2RF Januvia 100 mg tablet 100 mg PO QPM 90 Days Qty: 90 4RF metformin 500 mg tablet extended release 24 hr 1,000 mg PO BID 30 Days Qty: 360 1RF sennosides [Senokot] 8.6 mg tablet 8.6 mg PO BID 14 Days Qty: 28 0RF Rx Instructions: Take two times a day to prevent/treat constipation aspirin [Marleny Low Dose Aspirin] 81 mg tablet,delayed release (DR/EC) 81 mg PO BID 45 Days Qty: 90 0RF Rx Instructions: Take to prevent blood clots. acetaminophen [Tylenol Extra Strength] 500 mg tablet 1,000 mg PO TID 30 Days Qty: 180 0RF Rx Instructions: Take 3 times per day to lessen pain. ketorolac 10 mg tablet 10 mg PO Q6 5 Days Qty: 20 0RF Rx Instructions: Take 4 times per day with food for 5 days to lessen pain and swelling. cefadroxil 500 mg capsule 500 mg PO BID 7 Days Qty: 14 0RF Rx Instructions: Take 1 cap twice a day to prevent infection tamsulosin [Flomax] 0.4 mg capsule 0.4 mg PO DAILY Qty: 7 0RF Rx Instructions: Begin night BEFORE surgery to prevent urinary retention polyethylene glycol 3350 [Miralax] 17 gram/dose powder 17 g PO DAILY 10 Days Qty: 170 0RF Rx Instructions: Take to prevent/treat constipation. ondansetron 4 mg tablet,disintegrating 4 mg PO Q8 PRN (Reason: nausea) Qty: 20 1RF Rx Instructions: Take as needed for nausea oxycodone 5 mg tablet 5 - 10 mg PO Q6 PRN (Reason: pain) Qty: 40 0RF Rx Instructions: Take as needed for pain diclofenac sodium [Voltaren Arthritis Pain] 1 % gel 2 g topical QID PRN (Reason: Pain) Rx Instructions: apply to single elbow, wrist or hand; for hand includes palm/fingers/back of hand lisinopril 5 mg tablet 5 mg PO QAM 90 Days Qty: 90 3RF Jardiance 25 mg tablet 25 mg PO QAM Discontinued acetaminophen [Tylenol Extra Strength] 500 mg tablet 1,000 mg PO DIRECTED PRN (Reason: Pain) Admission Data Admit Date/Time: 03/10/24 08:54 Attending Provider: Mauri Barba Admit Provider: Mauri Barba Primary Care Provider: Nina Dai Other Providers: [facility],Home [facility] Other Interventions: Discharge Summary Assessment (RN) Last Done: 03/11/24 11:27
== END 2024-03-11 12:03 | disposition home health service (06) ==
LOC: ASU 05:09 → 3E 05:09

== ENCOUNTER 2025-03-26 05:53 | Inpatient (IN) ==
[2025-03-26] MEDS: BACLOFEN 20 MG TAB PO STA (07:34)
[2025-03-26] MEDS: ACETAMINOPHEN 500 MG TAB PO STA (07:35)
[2025-03-26] MEDS: LIDOCAINE 5% 1 PATCH TD STA (07:36)
[2025-03-26] MEDS: dexAMETHasone**PF** 10 MG/ML VIAL IM ONE (07:38)
--- NOTE | 2025-03-26 07:48 | Emergency Department Note ---
Impression & Plan Acute on chronic back pain, Other intervertebral disc degeneration, lumbar region with discogenic back pain and lower extremity pain, Facet arthropathy, lumbosacral, Sacroiliitis, Lumbar radiculopathy, Low back pain ED Provider Note CHIEF COMPLAINT: Low back pain HISTORY OF PRESENT ILLNESS: This 59-year-old male patient presents to the emergency department via ambulance complaining of pain in the low back which began several months ago. The patient states he has followed with orthopedics and is seeing pain management. He has a nonsurgical disc bulge in his lower lumbar spine with generalized degenerative changes. The patient states that his pain radiates into his groin and down into both lower extremities. He states he is to receive an injection in April, but over the past 2 days, he has been having difficulty controlling the pain. 3 to 4 days ago, he spoke with pain management due to the increase in pain and he was started on baclofen and a Medrol Dosepak. He states he has had no relief with these medications and has also been using his diclofenac. Last doses of medications were late last night. He did not take his morning doses today. Patient's visitor states he has been crying in pain and refusing to get out of bed. He states he is having difficulty getting around due to the pain and has been using a walker. The pain has not significantly changed in nature compared to his baseline pain, he simply feels it is more severe than baseline. The patient denies any falls. No trauma or injury. The patient notes the pain as throbbing and sharp and a 10/10. The patient denies any loss of control of their bowel or bladder functions. There has been no leg numbness or weakness, and no change in sensation. No nausea or vomiting or abdominal pain. No chest pain or shortness of breath. The patient has not had prior back injuries. No dysuria or increased urinary frequency. REVIEW OF SYSTEMS: A 10 system review of systems was performed with positives and pertinent negatives listed in the history of present illness. All other systems were reviewed and are negative. ALLERGIES: Atorvastatin, Celebrex, Trulicity, Tradjenta, tizanidine PHYSICAL EXAM: VITALS: Vitals are noted on the nurse's note and reviewed by myself. Vital signs stable. GENERAL: This is a 59-year-old male, in no acute distress, nondiaphoretic, well- developed well-nourished. SKIN: The skin was without rashes, erythema, edema, or bruising. Capillary refill less than 2 seconds. NECK: Supple without nuchal rigidity. No cervical spine tenderness. No paraspinous muscle tenderness. HEART: Regular rate and rhythm without murmurs gallops or rubs. LUNGS: Clear to auscultation bilaterally without wheezes, rales or rhonchi. ABDOMEN: Positive bowel sounds x 4. Normal tympanic percussion. Soft, nontender, without masses or organomegaly. Harris sign negative. MUSCULOSKELETAL: No muscle atrophy, erythema, or edema noted of the back. There is no tenderness over the lumbar spinous processes. There is tenderness over the paraspinous muscles bilaterally in the lumbar region. There is no tenderness over the thoracic spine or paraspinous muscles. There are no obvious muscle spasms present. The patient is slow to move around with maximum tenderness with sitting from a lying position. Negative bilateral straight leg raise test. NEURO: Patient was alert and oriented to person place and time. Normal sensation to light and sharp touch. Deep tendon reflexes 2+ in the lower extremities. Dorsalis pedis pulse 2+ bilaterally. Strength 5/5 and equal in the bilateral lower extremities. EMERGENCY DEPARTMENT COURSE: The patient was evaluated as above. The patient presents to the emergency department due to low back pain. This is chronic in nature, but seems to have flared up and worsened over the past 2 days. The patient does not have any neurologic deficits to suggest cauda equina syndrome or epidural abscess. He is scheduled to have injection completed with pain management in about 3 weeks. Patient medicated with p.o. acetaminophen, 20 mg baclofen, IM dexamethasone, and a lidocaine patch. Approximately 45 minutes later, patient notes he is continuing to experience severe pain and states his pain is worsening. The patient was medicated with IM Toradol. At this time, I was notified by the RN that the patient and his are irritated that they are "only getting the medicines they have at home". I did speak with the patient and his and advised them that he has gotten different doses as well as different types of medications than what he has already been on. I am hesitant to initiate opioid analgesics in the setting of chronic pain. The patient does follow with pain management and should continue to work closely with them. I did offer admission for intractable pain and the patient declines at this time. Patient medicated with p.o. oxycodone. After a short observation period, ED RN did reevaluate the patient and noted that the patient continue complain of severe pain and his states that she will not take him home in this condition. The patient is requesting admission. At this time due to likely need for admission for intractable pain, IV access was obtained and labs were drawn. The patient was medicated with IV morphine and Zofran. Pt's apparently contacted spine surgery office and insisted Dr. Michaud be paged. 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 I did update him regarding this patient whom he is very familiar with, and he notes he has no further recommendations at this time and would defer to hospitalist/pain management for further pain control as the patient is neurologically intact. [facility] did agree to evaluate the patient for admission. Labs reviewed. Mild leukocytosis of 13,000. No anemia or thrombocytopenia. Creatinine mildly elevated 1.51. Renal function without significant abnormality. Hepatic function shows ALT mildly elevated at 73. Urinalysis was not obtained. [facility] Please see hospitalist dictation regarding ongoing management and final disposition of this patient. Differential diagnosis includes musculoskeletal, disc herniation, fracture, metastatic disease, cord compression, discitis, sciatica, cauda equina, infection, aortic disease, renal colic, gastrointestinal, as well as other pathologies. I attest that I have personally reviewed the patient's current medication list. Blood Pressure Screening: Patient was found to have a slightly elevated blood pressure due to circumstances. I do not believe that the patient requires hypertension monitoring. The chart was completed utilizing [employer] Speech voice recognition software. Grammatical errors, random word insertions, pronoun errors, and incomplete sentences are an occasional consequence of this system due to software limitations, ambient noise, and hardware issues. Any formal questions or concerns about the content, text, or information contained within the body of this dictation should be directly addressed to the provider for clarification. Past Med/Surg History Problem List Low back pain (Acute) Acute on chronic back pain (Acute) Lumbar radiculopathy (Acute) Sacroiliitis (Acute) Facet arthropathy, lumbosacral (Acute) Piriformis syndrome of left side Other intervertebral disc degeneration, lumbar region with discogenic back pain and lower extremity pain (Acute) Hip bursitis, left Lumbar spondylosis Type 2 diabetes mellitus with obesity Hyperlipidemia Hypertension Status post left partial knee replacement Inhibited sexual excitement Medical History Dyshidrotic eczema Per records Osteoarthritis Hx of syncope 07/2023, evaluated at [facility] ER, unknown etiology > No recurrence/issues since Per [facility] PCP 07/29/23, t/c further evaluation if recurrence occurs Fatty liver History of kidney stones No surgical intervention, pt passed on own Surgical History S/P right unicompartmental knee replacement History of anesthesia reaction History of tooth extraction History of wisdom tooth extraction S/P right knee arthroscopy Family History Mother Guillain Lorenzana syndrome Diabetes Hyperlipidemia Stroke Father Myocardial infarction Glaucoma Grandfather Prostate cancer Other Coronary heart disease FH: CABG (coronary artery bypass surgery) No family history of adverse response to anesthesia Denies family history of Ovarian cancer Breast cancer Colorectal cancer Social History Smoking Status: Never smoker Second Hand Exposure: No; Do You Dip or Chew Tobacco: No (quit 2020); Hx Alcohol Use: No Hx Substance Use: No Preferred Language: Egyptian Communication Ability: Effective Visual Impairment: No Limitations Hearing Ability: Normal Park Guard Required: No Beliefs That Will Affect Care: None marital status: Current Living Situation: Spouse current occupational status: employed Feels Safe at Home: Yes Childhood Exposure to Second-Hand Smoke: Yes Diet: diabetic caffeine: Yes during the past year weight has: remained stable Dental Care, Regularly: Yes Physical Activity Frequency: Daily Seatbelt Use: always Sunscreen Use: No Assistive Devices: Cane and Walker Allergies Allergies Allergy/AdvReac Type Severity Reaction Status Date / Time atorvastatin AdvReac Severe Muscle Pain Verified 03/11/25 08:09 celecoxib AdvReac Intermediate Headache, Verified 03/11/25 08:09 shaking, nausea [facility] AdvReac Mild Nausea Verified 03/11/25 08:09 linagliptin [From Tradnta] AdvReac Mild Nausea Verified 03/11/25 08:09 tizanidine AdvReac Verified 03/11/25 08:09 Home Meds Previous Rx's Medication Instructions Recorded acetaminophen 500 mg tablet 1,000 mg (2 x 500 mg) PO TID pain 03/30/24 (Tylenol Extra Strength) 30 days #180 tabs empagliflozin 25 mg tablet 25 mg PO QAM #90 tabs 06/19/24 (Jardiance) lancets 33 gauge (OneTouch Delica #270 ea 06/19/24 Plus Lancet) sitagliptin phosphate 100 mg 100 mg PO QPM 90 days #90 tabs 06/19/24 tablet (Januvia) lisinopril 5 mg tablet 5 mg PO QAM 90 days #90 tabs 09/16/24 pravastatin 20 mg tablet 20 mg PO HS 90 days #90 tabs 10/15/24 blood sugar diagnostic (True #100 ea 12/18/24 Metrix Glucose Test Strip) blood-glucose meter (True Metrix #1 ea 12/18/24 Air Glucose Meter) metformin 500 mg tablet,extended 1,000 mg (2 x 500 mg) PO BID 90 01/04/25 release 24 hr days #360 tabs diclofenac sodium 50 mg 50 mg PO TID #90 tabs 02/12/25 tablet,delayed release baclofen 10 mg tablet 10 mg PO TID PRN muscle spasm #30 03/23/25 tabs methylprednisolone 4 mg tablets in See Rx Instructions .Route 03/23/25 a dose pack (Medrol (Dayday)) .COMPLEX #21 ea Results & Data (ED) Vital Signs Vital Signs - 24 hr 03/26/25 05:59 03/26/25 07:30 03/26/25 09:00 Temperature 36.8 C Temperature Source Oral Pulse Rate 60 Pulse Rate [Finger] 60 56 L Pulse Rate from SpO2 Sensor Respiratory Rate 17 16 16 Respiratory Effort / Characteristics Non-Labored Spontaneous Respiratory Depth Normal Respiratory Pattern Regular Blood Pressure 144/80 H Blood Pressure [Left Arm] 122/62 102/66 Blood Pressure Mean 101 Blood Pressure Mean [Left Arm] 82 78 Blood Pressure Position [Left Arm] Semi-fowlers Semi-fowlers Pulse Oximetry 95 95 94 Oxygen Delivery Method Room Air Room Air Room Air Sepsis Recent Fever Within 48 Hours No Sepsis New/Unexplained Change in Mental Status N/A Sepsis Action Taken by Nursing No Action Required 03/26/25 10:05 03/26/25 11:30 03/26/25 11:51 Temperature Temperature Source Pulse Rate 65 62 Pulse Rate [Finger] 59 L Pulse Rate from SpO2 Sensor 64 Respiratory Rate 16 16 Respiratory Effort / Characteristics Respiratory Depth Respiratory Pattern Blood Pressure 144/84 H Blood Pressure [Left Arm] 113/61 Blood Pressure Mean 104 Blood Pressure Mean [Left Arm] 78 Blood Pressure Position [Left Arm] Semi-fowlers Pulse Oximetry 94 92 Oxygen Delivery Method Room Air Sepsis Recent Fever Within 48 Hours Sepsis New/Unexplained Change in Mental Status Sepsis Action Taken by Nursing 03/26/25 12:00 Temperature Temperature Source Pulse Rate 62 Pulse Rate [Finger] Pulse Rate from SpO2 Sensor 63 Respiratory Rate 15 Respiratory Effort / Characteristics Respiratory Depth Respiratory Pattern Blood Pressure 136/73 Blood Pressure [Left Arm] Blood Pressure Mean 94 Blood Pressure Mean [Left Arm] Blood Pressure Position [Left Arm] Pulse Oximetry 92 Oxygen Delivery Method Sepsis Recent Fever Within 48 Hours Sepsis New/Unexplained Change in Mental Status Sepsis Action Taken by Nursing Laboratory Data 03/26/25 10:58 03/26/25 10:58 Lab Results 03/26/25 03/26/25 Range/Units 08:59 10:58 WBC 13.22 H (4.8-10.8) K/ul RBC 5.68 (4.70-6.10) M/uL Hgb 16.6 (14.0-18.0) g/dL Hct 48.6 (42.0-52.0) % MCV 85.6 (80.0-100.0) fL MCH 29.2 (25.0-34.0) pg MCHC 34.2 (32.0-36.0) g/dL RDW Std Deviation 40.5 (36.4-46.3) fL RDW Coeff of Ruslan 13.0 (11.5-14.5) % Plt Count 261 (130-400) K/uL MPV 10.2 (9.4-12.4) fL Immature Gran % (Auto) 1.4 % Neut % (Auto) 84.2 % Lymph % (Auto) 9.6 % [place] % (Auto) 4.1 % Eos % (Auto) 0.2 % Baso % (Auto) 0.5 % Neut # (Auto) 11.13 H (1.40-6.50) K/uL Lymph # (Auto) 1.27 (1.20-3.40) K/uL [place] # (Auto) 0.54 (0.11-0.59) K/uL Eos # (Auto) 0.03 (0.00-0.50) K/uL Baso # (Auto) 0.06 (0.00-0.20) K/uL Immature Gran # (Auto) 0.19 (0.01-0.20) K/uL Sodium 136 (136-145) mmol/L Potassium 5.1 (3.5-5.1) mmol/L Chloride 102 (98-107) mmol/L Carbon Dioxide 23 (21-32) mmol/L Anion Gap 11 (3-11) BUN 34 H (6-23) mg/dl Creatinine 1.51 H (0.6-1.4) mg/dl Est Cr Clr Drug Dosing 59.5 ml/min eGFR 52.22 BUN/Creatinine Ratio 22.5 H (10-20) Glucose 215 H (70-99(Fasting)) mg/dl POC Glucose 151 H (70-99) mg/dl Calcium 10.1 (8.6-10.3) mg/dl Total Bilirubin 0.9 (0.2-1.0) mg/dl AST 24 (13-39) U/L ALT 73 H (7-52) U/L Alkaline Phosphatase 52 (34-104) U/L Total Protein 7.9 (6.0-8.3) gm/dl Albumin 4.8 (3.4-5.0) gm/dl Globulin 3.1 (2.5-4.0) gm/dl Albumin/Globulin Ratio 1.5 (0.9-2) Administered Medications Discontinued Medications Acetaminophen (Acetaminophen 500 Mg Tab) 1,000 mg PO NOW STA Stop: 03/26/25 07:25 Last Admin: 03/26/25 07:35 Dose: 1,000 mg Documented By: CEF Baclofen (Baclofen 20 Mg Tab) 20 mg PO NOW STA Stop: 03/26/25 07:25 Last Admin: 03/26/25 07:34 Dose: 20 mg Documented By: CEF Dexamethasone Sodium Phosphate (DexamethasonePf 10 Mg/Ml Vial) 10 mg IM NOW ONE Stop: 03/26/25 07:25 Last Admin: 03/26/25 07:38 Dose: 10 mg Documented By: CEF Ketorolac Tromethamine (Ketorolac Tromethamine 60 Mg/2 Ml Vial) 60 mg IM NOW STA Stop: 03/26/25 08:26 Last Admin: 03/26/25 08:42 Dose: 60 mg Documented By: CEF Lidocaine (Lidocaine 5% 1 Patch) 1 patch TD NOW STA Stop: 03/26/25 07:25 Last Admin: 03/26/25 07:36 Dose: 1 patch Documented By: CEF Morphine Sulfate (Morphine Sulfate 4 Mg/Ml 1 Ml Carp\\Vial) 4 mg IV NOW STA Stop: 03/26/25 10:40 Last Admin: 03/26/25 11:03 Dose: 4 mg Documented By: CEF Ondansetron HCl (Ondansetron Inj 2 Mg/Ml 2 Ml Vial) 4 mg IV NOW STA Stop: 03/26/25 10:40 Last Admin: 03/26/25 11:01 Dose: 4 mg Documented By: CEF Oxycodone HCl (Oxycodone Hcl Ir 5 Mg Tab (Immediate Release)) 5 mg PO NOW STA Stop: 03/26/25 09:50 Last Admin: 03/26/25 09:57 Dose: 5 mg Documented By: CEF Discharge Plan Visit Data Chief Complaint: Back Injury/Pain Stated Complaint: Back Pain ED Provider: Adryan Lew ED Midlevel Provider: Jenae Biggs Discharge Problem: Acute on chronic back pain, Other intervertebral disc degeneration, lumbar region with discogenic back pain and lower extremity pain, Facet arthropathy, lumbosacral, Sacroiliitis, Lumbar radiculopathy, Low back pain Patient Disposition: Being Evaluated by Hospitalist Condition: Good Discharge Instructions Krames/Other Patient Handouts: ED [facility] Back Pain Activity Restrictions/Additional Instructions: You have been treated in the Emergency Department for Back Pain. You have received pain medicine in the emergency department which impairs your ability to operate a vehicle. It is illegal for you to drive after receiving these medicines. Continue using the muscle relaxers you are prescribed to help with any spasms you may be experiencing. Continue taking the prescribed NSAIDs as prescribed. You have been prescribed Prednisone. This is a steroid which will help decrease your inflammation and pain. Take this medication in place of the Medrol Dosepak you were previously on. Take this medicine as prescribed. Take the ENTIRE 3 day course, starting TOMORROW (03/27/2025). It is best to take steroids early in the morning as PM dosing can affect your sleeping patterns. Note, the steroids will likely cause your blood sugar to increase. For pain control, you can use the following [id number] medicines (if >12 yo): Acetaminophen(Tylenol) may be used for fever or pain. Use 1000mg every six hours as needed. Avoid using more than 3000mg in a 24 hour period. Use OTC 4% lidocaine patches as directed. No more than 1 patch in 24 hours. Patch must be removed by 12 hours. If this is an acute injury, ice can be applied to the area of pain for the first 3 days to help decrease pain and inflammation. After the first 3 days, a heating pad can be used over the area for continued soothing relief. You should schedule a follow-up appointment in 2-3 days with your Primary Care Provider for further evaluation and treatment of your back pain. Return to the Emergency Department if your current symptoms worsen despite treatment course outlined above, or if you develop any of the following symptoms: intractable pain despite aforementioned treatment course, loss of control of your bowel or bladder, numbness or tingling in your groin, or development of a fever. Interventions: ED Discharge Assessment Last Done: 03/26/25 10:13 Forms Stand Alone Forms: My [facility], Important Visit Information Prescriptions Prescriptions: No Action acetaminophen [Tylenol Extra Strength] 500 mg tablet 1,000 mg PO TID 30 Days Qty: 180 0RF Rx Instructions: Take 3 times per day to lessen pain. (DME) lancets [OneTouch Delica Plus Lancet] 33 gauge misc See Dose Instructions .ROUTE .MEDSUPPLY Qty: 270 3RF Dose Instruction: As directed Rx Instructions: Test blood sugar TID and PRN Jardiance 25 mg tablet 25 mg PO QAM Qty: 90 2RF Januvia 100 mg tablet 100 mg PO QPM 90 Days Qty: 90 4RF lisinopril 5 mg tablet 5 mg PO QAM 90 Days Qty: 90 3RF pravastatin 20 mg tablet 20 mg PO HS 90 Days Qty: 90 2RF (DME) True Metrix Glucose Test Strip Strip See Rx Instructions .Route Qty: 100 5RF Rx Instructions: As directed TID and PRN (DME) blood-glucose meter [True Metrix Air Glucose Meter] [facility] See Rx Instructions .Route Qty: 1 0RF Rx Instructions: As directed metformin 500 mg tablet extended release 24 hr 1,000 mg PO BID 90 Days Qty: 360 1RF diclofenac sodium 50 mg tablet,delayed release (DR/EC) 50 mg PO TID Qty: 90 1RF baclofen 10 mg tablet 10 mg PO TID PRN (Reason: muscle spasm) Qty: 30 0RF methylprednisolone [Medrol (Dayday)] 4 mg tablets,dose pack See Rx Instructions .Route .COMPLEX Qty: 21 0RF Rx Instructions: Take as directed ; Referrals Referrals: Josh Lemons PA-C [Physician] - Nina Dai MD [Primary Care Provider] -
[2025-03-26] MEDS: KETOROLAC TROMETHAMINE 60 MG/2 ML VIAL IM STA (08:42)
[2025-03-26] MEDS: ONDANSETRON INJ 2 MG/ML 2 ML VIAL IV STA (11:01)
[2025-03-26] MEDS: MoRPHine SULFATE 4 MG/ML 1 ML CARP\\VIAL IV STA (11:03)
[2025-03-26 11:11] LABS: Hematocrit (blood only) 48.6 % (42.0-52.0); Hemoglobin 16.6 g/dL (14.0-18.0); Immature Granulocytes # (auto) 0.19 K/uL (0.01-0.20); Immature Granulocytes % (auto) 1.4 %; Mean Corpuscular Hemoglobin 29.2 pg (25.0-34.0); Mean Corpuscular Volume 85.6 fL (80.0-100.0); Platelet Count 261 K/uL (130-400); RDW Standard Deviation 40.5 fL (36.4-46.3); Red Blood Count 5.68 M/uL (4.70-6.10); White Blood Count 13.22 K/ul (4.8-10.8)
[2025-03-26 11:29] LABS: Alanine Aminotransferase 73 U/L (7-52); Albumin Globulin Ratio 1.5 (0.9-2); Albumin Level 4.8 gm/dl (3.4-5.0); Alkaline Phosphatase 52 U/L (34-104); Anion Gap 11 (3-11); Bilirubin,Total 0.9 mg/dl (0.2-1.0); Blood Urea Nitrogen 34 mg/dl (6-23); Calcium 10.1 mg/dl (8.6-10.3); Carbon Dioxide 23 mmol/L (21-32); Chloride 102 mmol/L (98-107); Creatinine Clr Calc Pharmacy 59.5 ml/min; Globulin 3.1 gm/dl (2.5-4.0); Glucose 215 mg/dl (70-99(Fasting)); Potassium 5.1 mmol/L (3.5-5.1); Sodium 136 mmol/L (136-145); Total Protein 7.9 gm/dl (6.0-8.3)
[2025-03-26] MEDS ORDERED: ALUMINUM/MAGNESIUM SUSP 30 ML UDC PO PRN (12:55)
[2025-03-26] MEDS ORDERED: PHARMACY GLYCEMIC MGMT CONSULT PRN (14:05)
[2025-03-26] MEDS ORDERED: GLUCOSE 10 TAB/TUBE PO PRN (14:05)
[2025-03-26] MEDS ORDERED: DEXTROSE 50% 50 ML SYRINGE IV PRN (14:05)
[2025-03-26] MEDS ORDERED: CARBOHYDRATES FOR HYPOGLYCEMIA PO PRN (14:05)
[2025-03-26] MEDS ORDERED: GLUCOSE 40% GEL 15 GM TUBE PO PRN (14:05)
[2025-03-26] MEDS ORDERED: GLUCAGON FOR INJ 1 MG VIAL SQ PRN (14:05)
--- NOTE | 2025-03-26 14:31 | Pharmacy Report ---
Pharmacy Glycemic Short Note 2 - Date of Service March 26, 2025 - Glycemic Short BSG Results (Last 24 hours): 03/26/25 03/26/25 08:59 10:58 Glucose 215 H POC Glucose 151 H OUTPATIENT ANTIDIABETIC REGIMEN: * Jardiance 25mg PO daily * Januvia 100mg PO Q PM * metformin ER 1000mg PO BID HbA1c: 7.7% on 01/12/2025 ASSESSMENT: * Himanshu is a 59 year old male who is being admitted today for increasing/ uncontrolled pain in his lower back. Pharmacy has been consulted for glycemic management while he is admitted. * BSG on admit was 151mg/dL. He received dexamethasone 10mg IM x 1 this morning at 0738 an is ordered a dose of methylprednisolone 80mg iv x 1 at 1800 tonight. A weight based bolus insulin regimen with a stress of 2 was started and a Lantus scale (0, 10, or 15 units depending on on BSG was added.) PLAN FOR INPATIENT GLYCEMIC CONTROL: * Hold outpatient oral diabetes medications * Basal insulin * Lantus scale (0,10, or 15 units depending on BSG) at HS * Bolus insulin * NovoLog per scale ACHS or Q6hrs while NPO * Goal Range: Low 120 mg/dL - High 150 mg/dL * Correction Factor: 25 mg/dL/unit * Nutritional / Prandial insulin per carb ratio of 1 unit per 8 grams CHO consumed
[2025-03-26] MEDS: GABAPENTIN 300 MG CAP PO SCH (14:45)
[2025-03-26] MEDS: BACLOFEN 20 MG TAB PO PRN (14:45)
[2025-03-26] MEDS: LACTATED RINGER'S 1,000 ML IV ONE (15:04)
[2025-03-26] MEDS: ACETAMINOPHEN 325 MG TAB PO PRN (16:33)
[2025-03-26] MEDS: INSULIN ASPART PER UNIT CHARGE SC SCH (17:18)
[2025-03-26 17:40] LABS: Appearance Urine Clear (Clear); Glucose Urine UA 3+ (Negative)
[2025-03-26] MEDS: HYDROmorphone INJ 0.5 MG/0.5 ML SYR IV STA (18:03)
--- NOTE | 2025-03-26 20:59 | History & Physical Report ---
Date of Service March 26, 2025 Assessment & Plan (1) Low back pain: (2) Acute on chronic back pain: (3) Lumbar radiculopathy: (4) Lumbar spondylosis: (5) Type 2 diabetes mellitus with obesity: (6) Hyperlipidemia: (7) Hypertension: (8) Acute kidney injury: Plan Mr. Bañuelos is a 59 year old male patient that presented to [facility] emergency department with c/o worsening intractable lumbar back pain with know lumbar facet arthropathy. 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 Admitted for pain control. ##lumbar back pain, acute on chronic/lumbar sacral facet arthropathy admit to med/surg observation no cauda equina/saddle anesthesia symptoms Lumbar MRI 02/04/25 degenerative changes most pronounced @ L3-L4 with demonstrated moderate BL neural foraminal opening with disc bulge abutting the transiting BL L4 nerve roots intractable in nature in the setting of recent oral steroid therapy noted radiation into left hip/left groin/left thigh-->hx of nephrolithiasis, denies LUTS, CTAP to evaluate for kidney stone/s, UA pain medication management: initiate gabapentin, received one time dose of Decadron 10mg IM in ED, received one time dose of Oxycodone/Morphine in ED, Solumedrol IV this evening with bridge to oral steroids 03/27, baclofen TID, Lidocaine patch, Tylenol prn ##T2DM last HbA1c 7.7 on 01/12/25 hold oral hypoglycemic agents BSG ACHS SSI-->Goal Range: Low 120 mg/dL - High 150 mg/dL, Correction Factor: 25 mg/dL/unit, Nutritional / Prandial insulin per carb ratio of 1 unit per 8 grams CHO consumed ##SID baseline Cr 1.00~Cr 1.51 on admission gentle hydration with LR at 125/hr X 1 avoid nephrotoxic agents, hold ACEi ##HTN hold ACEi d/t Cr ##HLD hold home statin Disposition: Observation admission med/surg Diet: CC DVT proph: low risk, SCDs Code status: FULL CODE Admission and Anticipated Discharge Date Admission Date: March 26, 2025 History of Present Illness Chief Complaint: Lower back pain radiating into left hip, groin Primary Care Provider: Nina Dai MD Patient is 59 year old male with past medical history significant for T2DM, sacroiliitis, lumbosacral facet arthropathy, intervertebral disc degeneration, left hip bursitis, HLD, HTN, and s/p left TKA that presents with 2 day hx of worsening lumbar associated back pain with left hip/groin radiation. He has been taking oral methylprednisolone prescribed by pain management for the past 72 hours and has had minimal relief of his pain. Pain is localized to lumbar area and he describes a stabbing sensation that radiates into the left hip/groin area with additional radiation into the left thigh at time. Aggravating factors which reproduce his lower back pain are movement and for the past 48 hours he has been mostly lying in bed due to the severity of the pain. He has also been taking baclofen PRN and diclofenac. He was recently seen by Dr. Michaud for chronic lumbar pain and underwent MRI lumbar imaging that revealed degenerative changes most pronounced @ L3-L4 with demonstrated moderate BL neural foraminal opening with disc bulge abutting the transiting BL L4 nerve roots. Recommendations at that time to continue with stretching, PT and oral medication modalities with Diclofenac, Tylenol, etc. He was seen by pain management recently and is scheduled for L3-L4 epidural steroid injection in a few weeks. He denies LUTS, n/v/d, cauda equina red flag symptoms, motor strength weakness in BL lower legs, fever, chills, recent mechanism of fall to lumbar area or recent surgical intervention to lumbar area. After lengthy discussion with the patient regarding his resuscitative wishes, he elects to be a full code while hospitalized. Allergies Allergy/AdvReac Type Severity Reaction Status Date / Time atorvastatin AdvReac Severe Muscle Pain Verified 03/11/25 08:09 celecoxib AdvReac Intermediate Headache, Verified 03/11/25 08:09 shaking, nausea dulaglutide [From Trulicity] AdvReac Mild Nausea Verified 03/11/25 08:09 linagliptin [From Tradjenta] AdvReac Mild Nausea Verified 03/11/25 08:09 tizanidine AdvReac Verified 03/11/25 08:09 Home Medications Medication Instructions Recorded Confirmed Type acetaminophen 500 mg tablet 1,000 mg (2 x 500 mg) PO TID pain 03/30/24 03/26/25 Rx (Tylenol Extra Strength) 30 days #180 tabs empagliflozin 25 mg tablet 25 mg PO QAM #90 tabs 06/19/24 03/26/25 Rx (Jardiance) lancets 33 gauge (OneTouch Delica #270 ea 06/19/24 03/11/25 Rx Plus Lancet) sitagliptin phosphate 100 mg 100 mg PO QPM 90 days #90 tabs 06/19/24 03/26/25 Rx tablet (Januvia) lisinopril 5 mg tablet 5 mg PO QAM 90 days #90 tabs 09/16/24 03/26/25 Rx pravastatin 20 mg tablet 20 mg PO HS 90 days #90 tabs 10/15/24 03/26/25 Rx blood sugar diagnostic (True #100 ea 12/18/24 03/11/25 Rx Metrix Glucose Test Strip) blood-glucose meter (True Metrix #1 ea 12/18/24 03/11/25 Rx Air Glucose Meter) metformin 500 mg tablet,extended 1,000 mg (2 x 500 mg) PO BID 90 01/04/25 03/26/25 Rx release 24 hr days #360 tabs diclofenac sodium 50 mg 50 mg PO TID #90 tabs 02/12/25 03/26/25 Rx tablet,delayed release baclofen 10 mg tablet 10 mg PO TID PRN muscle spasm #30 03/23/25 03/26/25 Rx tabs methylprednisolone 4 mg tablets in See Rx Instructions .Route 03/23/25 03/26/25 Rx a dose pack (Medrol (Dayday)) .COMPLEX #21 ea Past Med/Surg History Problem List (Updated 03/26/25 @ 22:16 by DAVE Rajput) Acute kidney injury Low back pain (Acute) Acute on chronic back pain (Acute) Lumbar radiculopathy (Acute) Sacroiliitis (Acute) Facet arthropathy, lumbosacral (Acute) Piriformis syndrome of left side Other intervertebral disc degeneration, lumbar region with discogenic back pain and lower extremity pain (Acute) Hip bursitis, left Lumbar spondylosis Type 2 diabetes mellitus with obesity Hyperlipidemia Hypertension Status post left partial knee replacement Inhibited sexual excitement Medical History Dyshidrotic eczema Per records Osteoarthritis Hx of syncope 07/2023, evaluated at [facility] ER, unknown etiology > No recurrence/issues since Per [facility] PCP 07/29/23, t/c further evaluation if recurrence occurs Fatty liver History of kidney stones No surgical intervention, pt passed on own Surgical History S/P right unicompartmental knee replacement History of anesthesia reaction History of tooth extraction History of wisdom tooth extraction S/P right knee arthroscopy Family History Mother Guillain Lorenzana syndrome Diabetes Hyperlipidemia Stroke Father Myocardial infarction Glaucoma Grandfather Prostate cancer Other Coronary heart disease FH: CABG (coronary artery bypass surgery) No family history of adverse response to anesthesia Denies family history of Ovarian cancer Breast cancer Colorectal cancer Social History Smoking Status: Never smoker Second Hand Exposure: No; Do You Dip or Chew Tobacco: No; Tobacco Cessation Education Requested by Patient: No Hx Alcohol Use: No Hx Substance Use: No Preferred Language: Latvian Communication Ability: Effective Visual Impairment: No Limitations Hearing Ability: Normal [employer]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 Beliefs That Will Affect Care: None marital status: Current Living Situation: Spouse Current Living Situation Comment: current occupational status: employed Other Information That Helps Us Care for You: No Feels Safe at Home: Yes Safety Concerns: Feels Safe At This Time Childhood Exposure to Second-Hand Smoke: Yes Diet: diabetic caffeine: Yes during the past year weight has: remained stable Dental Care, Regularly: Yes Physical Activity Frequency: Daily Seatbelt Use: always Sunscreen Use: No Assistive Devices: Walker Review of Systems Review of Systems: All systems reviewed & are unremarkable except as noted in Subjective Physical Exam Physical Exam: GENERAL APPEARANCE: A&O. Lying on right side in stretcher. NAD. SKIN: Normal color without rashes or lesions. Normal turgor. HEENT: Head AT/NC. Buccal mucosa is moist and pink. HEART: RRR without m/g/r. LUNGS: Normal inspiratory effort. CTA without w/r/r. ABDOMEN: No guarding or rigidity. Normoactive BS in all four quadrants. Abdomen soft and NT. MSK: No bony gross/deformities throughout. ROM intact. TTP left paraspinal muscles. +5 MS in bilateral lower ext with intact sensation. EXTREMITIES: No edema, No peripheral cyanosis. Neuro: CN 2-12 grossly intact. No focal neuro deficits PSYCHIATRIC: Normal affect. Eye contact is good. Speech is normal rate and content. Responses are appropriate. Results & Data Results & Data Vital Signs (Past 12 Hours) Vital Signs Temp Pulse Pulse Resp BP BP Pulse Ox 03/26/25 15:29 36.8 C 61 18 102/58 L 92 03/26/25 14:30 36.9 C 52 L 16 137/69 94 03/26/25 13:30 64 14 141/81 H 93 03/26/25 13:00 60 17 121/72 93 03/26/25 12:30 58 L 12 142/82 H 94 03/26/25 12:00 62 15 136/73 92 03/26/25 11:51 62 03/26/25 11:30 65 16 144/84 H 92 03/26/25 10:05 59 L 16 113/61 94 03/26/25 09:00 56 L 16 102/66 94 O2 Del Method 03/26/25 15:29 Room Air 03/26/25 14:30 Room Air 03/26/25 13:30 03/26/25 13:00 03/26/25 12:30 03/26/25 12:00 03/26/25 11:51 03/26/25 11:30 03/26/25 10:05 Room Air 03/26/25 09:00 Room Air Laboratory Results Labs reviewed: CBC, BMP, procal, ESR, CRP Code Status & VTE Plan VTE Prophylaxis Plan VTE Prophylaxis will be ordered: Yes PG Care Time/CCT Total # of Minutes Spent Total Time Spent with Patient: Total time spent is greater than 50% in coordination of care (as documented) at patient's floor/unit and/or counseling patient: Coding Level of Care Code 51165 INT INP/OBS CARE 2/55MIN Diagnoses Low back pain M54.50 Acute on chronic back pain M54.9; G89.29 Lumbar radiculopathy M54.16 Lumbar spondylosis M47.816 Type 2 diabetes mellitus with obesity E11.69; E66.9 Hyperlipidemia E78.5 Hypertension I10 Acute kidney injury N17.9
[2025-03-26] MEDS: LANTUS PER UNIT CHARGE SC SCH (21:05)
[2025-03-26] MEDS: REMOVE LIDODERM PATCH SCH (21:06)
[2025-03-26 21:31] LABS: Appearance Urine Clear (Clear); Glucose Urine UA 3+ (Negative)
[2025-03-27] MEDS: HYDROmorphone INJ 1 MG/ML SYRINGE IV STA (08:53)
--- NOTE | 2025-03-27 11:16 | CT Scan Report ---
ABDOMEN AND PELVIS CT WITHOUT CONTRAST CT DOSE: 1407.06 mGy.cm HISTORY: lower back discomfort radiating into L hip, groin TECHNIQUE: Multiaxial CT images of the abdomen and pelvis were performed without contrast. A dose lo wering technique was utilized adhering to the principles of ALARA. COMPARISON STUDY: 04/19/2014 FINDINGS: ABDOMEN: Liver, gallbladder, spleen, pancreas, and adrenal glands have an unremarkable non-IV contras idania appearance. There are a few tiny nonobstructing calculi in both kidneys. There is no hydronephros is bilaterally. No ureteral calculi seen. There are scattered atherosclerotic calcifications. No abdo haydee aortic aneurysm. Pelvis: Prostate is enlarged. Urinary bladder is mildly distended. There is mild sigmoid diverticulos is. No acute diverticulitis. No bowel inflammation or obstruction. Normal appendix. No free fluid or free air. No enlarged adenopathy. Stable tiny fat-containing left inguinal hernia. Osseous structures: There is moderate diffuse lumbar spine degenerative disc disease. There are mild degenerative changes at the hips. No acute osseous finding. IMPRESSION: 1. No acute findings. 2. A few tiny nonobstructing renal calculi with no ureteral calculi or hydronephrosis. 3. Lumbar spine degenerative disc disease. 4. Otherwise as described. ACT 112: Negative or not required by law. The above report was generated using voice recognition software. It may contain grammatical, syntax o r spelling errors. Electronically signed by: Gregorio Loya M.D. 03/27/2025 11:14 AM
[2025-03-27] MEDS: HYDROmorphone INJ 1 MG/ML SYRINGE IV PRN (12:35)
[2025-03-27] MEDS: LANTUS PER UNIT CHARGE SC ONE (12:35)
[2025-03-27 12:59] LABS: Hematocrit (blood only) 44.6 % (42.0-52.0); Hemoglobin 15.3 g/dL (14.0-18.0); Immature Granulocytes # (auto) 0.25 K/uL (0.01-0.20); Immature Granulocytes % (auto) 1.2 %; Mean Corpuscular Hemoglobin 29.5 pg (25.0-34.0); Mean Corpuscular Volume 85.9 fL (80.0-100.0); Platelet Count 288 K/uL (130-400); RDW Standard Deviation 39.8 fL (36.4-46.3); Red Blood Count 5.19 M/uL (4.70-6.10); White Blood Count 20.43 K/ul (4.8-10.8)
[2025-03-27 13:16] LABS: Anion Gap 10 (3-11); Blood Urea Nitrogen 46 mg/dl (6-23); Calcium 9.1 mg/dl (8.6-10.3); Carbon Dioxide 23 mmol/L (21-32); Chloride 103 mmol/L (98-107); Creatinine Clr Calc Pharmacy 65.1 ml/min; Glucose 227 mg/dl (70-99(Fasting)); Magnesium 2.4 mg/dl (1.7-2.4); Potassium 4.9 mmol/L (3.5-5.1); Sodium 136 mmol/L (136-145)
--- NOTE | 2025-03-27 15:14 | Hospitalist Progress Note ---
Date of Service March 27, 2025 Assessment & Plan (1) Low back pain: (2) Acute on chronic back pain: (3) Lumbar radiculopathy: (4) Lumbar spondylosis: (5) Type 2 diabetes mellitus with obesity: (6) Hyperlipidemia: (7) Hypertension: (8) Acute kidney injury: Plan Mr. Bañuelos is a 59 year old male patient that presented to [facility] emergency department with c/o worsening intractable lumbar back pain with know lumbar facet arthropathy. 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 Admitted for pain control. ##lumbar back pain, acute on chronic/lumbar sacral facet arthropathy - acute, severe and persistent exacerbation - no significant structural abnormality noted on CT - no cauda equina/saddle anesthesia symptoms - Lumbar MRI 02/04/25 degenerative changes most pronounced @ L3-L4 with demonstrated moderate BL neural foraminal opening with disc bulge abutting the transiting BL L4 nerve roots intractable in nature in the setting of recent oral steroid therapy noted radiation into left hip/left groin/left thigh-->hx of nephrolithiasis, denies LUTS, CTAP to evaluate for kidney stone/s, UA pain medication management: initiate gabapentin, received one time dose of Decadron 10mg IM in ED, received one time dose of Oxycodone/Morphine in ED, Solumedrol IV this evening with - decdron 4mg PO daily for 5 days - baclofen TID, Lidocaine patch, Tylenol prn - Dilaudid 1mg q3H PRN, will monitor 24 dose requirement and transition in oral in 24-48hrs as control allows - No high risk elements to his history, will require close O/P follow-up for medication mgmt0 ##T2DM last HbA1c 7.7 on 01/12/25 hold oral hypoglycemic agents BSG ACHS SSI-->Goal Range: Low 120 mg/dL - High 150 mg/dL, Correction Factor: 25 mg/dL/unit, Nutritional / Prandial insulin per carb ratio of 1 unit per 8 grams CHO consumed - Generally withing goal range, monitor with ongoing decadron ##SID baseline Cr 1.00~Cr 1.51 on admission gentle hydration with LR at 125/hr X 1 avoid nephrotoxic agents, hold ACEi -normalizing, recheck in AM ##HTN hold ACEi d/t Cr - BP within range ##HLD hold home statin Disposition: Admit for ongoing parenteral IV narcotic pain medication titration Diet: CC DVT proph: low risk, SCDs Code status: FULL CODE Admission and Anticipated Discharge Date Admission Date: March 26, 2025 Subjective Not much relief from the oral pain medications he has been getting. Baclofen. Lidoderm. Helping somewhat but he has only a couple hours relief from the Dilaudid. We reviewed his CT imaging today. No significant changes in findings from MRI previously. He does have a pain medicine evaluation set up for April 15 for potential epidural injection. We discussed bridging options. No red flag symptoms on his exam today. Will utilize Dilaudid over the short-term titrate to then amount less effective for him. Will take a day or 2 worth of dosing and then to transition to a safe oral regimen for discharge and bridging management. We do lengthy discussion in regards to the risks versus benefits of opiate based medications for chronic back pain. He reports he has been on oxycodone briefly in the past for knee replacement but has never been on any underlying other medications. No significant history of substance dependence. Will be able to follow-up closely in the primary clinic for ongoing titration and management. Physical Exam Physical Exam: GENERAL APPEARANCE: A&O. Lying on right side in stretcher. NAD. SKIN: Normal color without rashes or lesions. Normal turgor. HEENT: Head AT/NC. Buccal mucosa is moist and pink. HEART: RRR without m/g/r. LUNGS: Normal inspiratory effort. CTA without w/r/r. ABDOMEN: No guarding or rigidity. Normoactive BS in all four quadrants. Abdomen soft and NT. MSK: No bony gross/deformities throughout. ROM intact. TTP left paraspinal muscles. +5 MS in bilateral lower ext with intact sensation. EXTREMITIES: No edema, No peripheral cyanosis. Neuro: CN 2-12 grossly intact. No focal neuro deficits, Straight leg test positive on the left PSYCHIATRIC: Normal affect. Eye contact is good. Speech is normal rate and content. Responses are appropriate. Results & Data Results & Data Vital Signs (Past 12 Hours) Vital Signs Temp Pulse Resp BP Pulse Ox O2 Del Method 03/27/25 07:02 36.8 C 57 L 16 119/64 93 Room Air Laboratory Results 03/27/25 03/27/25 03/27/25 12:42 11:20 07:37 WBC 20.43 H RBC 5.19 Hgb 15.3 Hct 44.6 MCV 85.9 MCH 29.5 MCHC 34.3 RDW Std Deviation 39.8 RDW Coeff of [place]lan 12.7 Plt Count 288 MPV 10.2 Immature Gran % (Auto) 1.2 Neut % (Auto) 74.9 Lymph % (Auto) 11.8 [place] % (Auto) 11.4 Eos % (Auto) 0.4 Baso % (Auto) 0.3 Neut # (Auto) 15.30 H Lymph # (Auto) 2.41 [place] # (Auto) 2.32 H Eos # (Auto) 0.09 Baso # (Auto) 0.06 Immature Gran # (Auto) 0.25 H Sodium 136 Potassium 4.9 Chloride 103 Carbon Dioxide 23 Anion Gap 10 BUN 46 H Creatinine 1.38 Est Cr Clr Drug Dosing 65.1 eGFR 58.18 BUN/Creatinine Ratio 33.3 H Glucose 227 H POC Glucose 147 H 142 H Calcium 9.1 Magnesium 2.4 C-Reactive Protein < 0.50 Procalcitonin 0.02 Urine Color Urine Appearance Urine pH Ur Specific [place] Urine Protein Urine Glucose (UA) Urine Ketones Urine Blood Urine Nitrite Urine Bilirubin Urine Urobilinogen Ur Leukocyte Esterase Urine Comment 03/26/25 03/26/25 03/26/25 Unknown Unknown Unknown WBC RBC Hgb Hct MCV MCH MCHC RDW Std Deviation RDW Coeff of [place] Plt Count MPV Immature Gran % (Auto) Neut % (Auto) Lymph % (Auto) [place] % (Auto) Eos % (Auto) Baso % (Auto) Neut # (Auto) Lymph # (Auto) [place] # (Auto) Eos # (Auto) Baso # (Auto) Immature Gran # (Auto) Sodium Potassium Chloride Carbon Dioxide Anion Gap BUN Creatinine Est Cr Clr Drug Dosing eGFR BUN/Creatinine Ratio Glucose POC Glucose Calcium Magnesium C-Reactive Protein Procalcitonin Urine Color Urine Appearance Urine pH Ur Specific [place] Urine Protein Urine Glucose (UA) Urine Ketones Urine Blood Urine Nitrite Urine Bilirubin Urine Urobilinogen Negative Ur Leukocyte Esterase Negative Negative Urine Comment 03/26/25 03/26/25 03/26/25 Unknown Unknown Unknown WBC RBC Hgb Hct MCV MCH MCHC RDW Std Deviation RDW Coeff of [place] Plt Count MPV Immature Gran % (Auto) Neut % (Auto) Lymph % (Auto) [place] % (Auto) Eos % (Auto) Baso % (Auto) Neut # (Auto) Lymph # (Auto) [place] # (Auto) Eos # (Auto) Baso # (Auto) Immature Gran # (Auto) Sodium Potassium Chloride Carbon Dioxide Anion Gap BUN Creatinine Est Cr Clr Drug Dosing eGFR BUN/Creatinine Ratio Glucose POC Glucose Calcium Magnesium C-Reactive Protein Procalcitonin Urine Color Urine Appearance Urine pH Ur Specific [place] Urine Protein Urine Glucose (UA) Urine Ketones Urine Blood Negative Urine Nitrite Negative Negative Urine Bilirubin Negative Negative Urine Urobilinogen Negative Ur Leukocyte Esterase Urine Comment 03/26/25 03/26/25 03/26/25 Unknown Unknown Unknown WBC RBC Hgb Hct MCV MCH MCHC RDW Std Deviation RDW Coeff of [place] Plt Count MPV Immature Gran % (Auto) Neut % (Auto) Lymph % (Auto) [place] % (Auto) Eos % (Auto) Baso % (Auto) Neut # (Auto) Lymph # (Auto) [place] # (Auto) Eos # (Auto) Baso # (Auto) Immature Gran # (Auto) Sodium Potassium Chloride Carbon Dioxide Anion Gap BUN Creatinine Est Cr Clr Drug Dosing eGFR BUN/Creatinine Ratio Glucose POC Glucose Calcium Magnesium C-Reactive Protein Procalcitonin Urine Color Urine Appearance Urine pH Ur Specific [place] Urine Protein Negative Urine Glucose (UA) 3+ H 3+ H Urine Ketones Trace H Trace H Urine Blood Negative Urine Nitrite Urine Bilirubin Urine Urobilinogen Ur Leukocyte Esterase Urine Comment 03/26/25 03/26/25 03/26/25 Unknown Unknown Unknown WBC RBC Hgb Hct MCV MCH MCHC RDW Std Deviation RDW Coeff of [place] Plt Count MPV Immature Gran % (Auto) Neut % (Auto) Lymph % (Auto) [place] % (Auto) Eos % (Auto) Baso % (Auto) Neut # (Auto) Lymph # (Auto) [place] # (Auto) Eos # (Auto) Baso # (Auto) Immature Gran # (Auto) Sodium Potassium Chloride Carbon Dioxide Anion Gap BUN Creatinine Est Cr Clr Drug Dosing eGFR BUN/Creatinine Ratio Glucose POC Glucose Calcium Magnesium C-Reactive Protein Procalcitonin Urine Color Urine Appearance Clear Urine pH 5.0 5.0 Ur Specific [place] 1.038 H 1.037 H Urine Protein Negative Urine Glucose (UA) Urine Ketones Urine Blood Urine Nitrite Urine Bilirubin Urine Urobilinogen Ur Leukocyte Esterase Urine Comment 03/26/25 03/26/2525 Unknown Unknown 20:21 WBC RBC Hgb Hct MCV MCH MCHC RDW Std Deviation RDW Coeff of [place] Plt Count MPV Immature Gran % (Auto) Neut % (Auto) Lymph % (Auto) [place] % (Auto) Eos % (Auto) Baso % (Auto) Neut # (Auto) Lymph # (Auto) [place] # (Auto) Eos # (Auto) Baso # (Auto) Immature Gran # (Auto) Sodium Potassium Chloride Carbon Dioxide Anion Gap BUN Creatinine Est Cr Clr Drug Dosing eGFR BUN/Creatinine Ratio Glucose POC Glucose 178 H Calcium Magnesium C-Reactive Protein Procalcitonin Urine Color Yellow Yellow Urine Appearance Clear Urine pH Ur Specific [place] Urine Protein Urine Glucose (UA) Urine Ketones Urine Blood Urine Nitrite Urine Bilirubin Urine Urobilinogen Ur Leukocyte Esterase Urine Comment 03/26/25 16:25 WBC RBC Hgb Hct MCV MCH MCHC RDW Std Deviation RDW Coeff of [place] Plt Count MPV Immature Gran % (Auto) Neut % (Auto) Lymph % (Auto) [place] % (Auto) Eos % (Auto) Baso % (Auto) Neut # (Auto) Lymph # (Auto) [place] # (Auto) Eos # (Auto) Baso # (Auto) Immature Gran # (Auto) Sodium Potassium Chloride Carbon Dioxide Anion Gap BUN Creatinine Est Cr Clr Drug Dosing eGFR BUN/Creatinine Ratio Glucose POC Glucose 189 H Calcium Magnesium C-Reactive Protein Procalcitonin Urine Color Urine Appearance Urine pH Ur Specific [place] Urine Protein Urine Glucose (UA) Urine Ketones Urine Blood Urine Nitrite Urine Bilirubin Urine Urobilinogen Ur Leukocyte Esterase Urine Comment Diagnostic Findings Abdomen/Pelvis CT 03/27/25 09:[address] WITHOUT CONTRAST CT DOSE: 1407.06 mGy.cm HISTORY: lower back discomfort radiating into L hip, groin TECHNIQUE: Multiaxial CT images of the abdomen and pelvis were performed without contrast. A dose lowering technique was utilized adhering to the principles of ALARA. COMPARISON STUDY: 04/19/2014 FINDINGS: ABDOMEN: Liver, gallbladder, spleen, pancreas, and adrenal glands have an unremarkable non-IV contrasted appearance. There are a few tiny nonobstructing calculi in both kidneys. There is no hydronephrosis bilaterally. No ureteral calculi seen. There are scattered atherosclerotic calcifications. No abdominal aortic aneurysm. Pelvis: Prostate is enlarged. Urinary bladder is mildly distended. There is mild sigmoid diverticulosis. No acute diverticulitis. No bowel inflammation or obstru ction. Normal appendix. No free fluid or free air. No enlarged adenopathy. Stable tiny fat-containing left inguinal hernia. Osseous structures: There is moderate diffuse lumbar spine degenerative disc disease. There are mild degenerative changes at the hips. No acute osseous finding. IMPRESSION: 1. No acute findings. 2. A few tiny nonobstructing renal calculi with no ureteral calculi or hydro nephrosis. 3. Lumbar spine degenerative disc disease. 4. Otherwise as described. ACT 112: Negative or not required by law. The above report was generated using voice recognition software. It may contain grammatical, syntax or spelling errors. Electronically signed by: Gregorio Loya M.D. 03/27/2025 11:14 AM PG Care Time/CCT Total # of Minutes Spent Total Time Spent with Patient: Total time spent is greater than 50% in coordination of care (as documented) at patient's floor/unit and/or counseling patient: Coding Level of Care Code 68724 SUB INP/OBS CARE 2/35MIN Diagnoses Low back pain M54.50 Acute on chronic back pain M54.9; G89.29 Lumbar radiculopathy M54.16 Lumbar spondylosis M47.816 Type 2 diabetes mellitus with obesity E11.69; E66.9 Hyperlipidemia E78.5 Hypertension I10 Acute kidney injury N17.9
[2025-03-28 06:13] LABS: Hematocrit (blood only) 45.2 % (42.0-52.0); Hemoglobin 15.2 g/dL (14.0-18.0); Immature Granulocytes # (auto) 0.18 K/uL (0.01-0.20); Immature Granulocytes % (auto) 1.3 %; Mean Corpuscular Hemoglobin 29.0 pg (25.0-34.0); Mean Corpuscular Volume 86.3 fL (80.0-100.0); Platelet Count 269 K/uL (130-400); RDW Standard Deviation 39.8 fL (36.4-46.3); Red Blood Count 5.24 M/uL (4.70-6.10); White Blood Count 14.38 K/ul (4.8-10.8)
[2025-03-28 06:52] LABS: Magnesium 2.4 mg/dl (1.7-2.4)
[2025-03-28] MEDS: LANTUS PER UNIT CHARGE SC ONE (08:16)
[2025-03-28] MEDS: HYDROmorphone INJ 1 MG/ML SYRINGE IV STA (11:11)
[2025-03-28] MEDS: LIDOCAINE 5% 1 PATCH TD SCH (11:46)
--- NOTE | 2025-03-28 17:15 | Hospitalist Progress Note ---
Date of Service March 28, 2025 Assessment & Plan (1) Low back pain: (2) Acute on chronic back pain: (3) Lumbar radiculopathy: (4) Lumbar spondylosis: (5) Type 2 diabetes mellitus with obesity: (6) Hyperlipidemia: (7) Hypertension: (8) Acute kidney injury: Plan Mr. Bañuelos is a 59 year old male patient that presented to [facility] emergency department with c/o worsening intractable lumbar back pain with know lumbar facet arthropathy. 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 Admitted for pain control. ##lumbar back pain, acute on chronic/lumbar sacral facet arthropathy - acute, severe and persistent exacerbation - no significant structural abnormality noted on CT - no cauda equina/saddle anesthesia symptoms - Lumbar MRI 02/04/25 degenerative changes most pronounced @ L3-L4 with demonstrated moderate BL neural foraminal opening with disc bulge abutting the transiting BL L4 nerve roots intractable in nature in the setting of recent oral steroid therapy noted radiation into left hip/left groin/left thigh-->hx of nephrolithiasis, denies LUTS, CTAP to evaluate for kidney stone/s, UA pain medication management: initiate gabapentin, received one time dose of Decadron 10mg IM in ED, received one time dose of Oxycodone/Morphine in ED, Solumedrol IV this evening with - decdron 4mg PO daily for 5 days - baclofen TID, Lidocaine patch, Tylenol prn, added gabapentin 300mg TID on 03/27 -Reasonable relief with IV Dilaudid 35 doses over 24 hours. - Oxycodone 10 mg every 4 hours as needed, continue with breakthrough Dilaudid 1 mg every 3 hours-as needed after lidocaine, Tylenol, baclofen, Gabapentin have been utilized - No high risk elements to his history, will require close O/P follow-up for medication mgmt0 ##T2DM last HbA1c 7.7 on 01/12/25 hold oral hypoglycemic agents BSG ACHS SSI-->Goal Range: Low 120 mg/dL - High 150 mg/dL, Correction Factor: 25 mg/dL/unit, Nutritional / Prandial insulin per carb ratio of 1 unit per 8 grams CHO consumed - Generally within goal range, monitor with ongoing decadron ##SID baseline Cr 1.00~Cr 1.51 on admission gentle hydration with LR at 125/hr X 1 avoid nephrotoxic agents, hold ACEi -normalizing, recheck in AM ##HTN hold ACEi d/t Cr - BP within range ##HLD hold home statin Disposition: Admit for ongoing parenteral IV narcotic pain medication titration Diet: CC DVT proph: low risk, SCDs Code status: FULL CODE Admission and Anticipated Discharge Date Admission Date: March 27, 2025 Subjective Has been doing well with multimodal pain control. Wants to get the Lidoderm patch back in place. He was doing well with IV Dilaudid doses about every 3 hours. He had a period of stay sustained-release this morning and then physical therapy came by and he did okay with that. Occupational Therapy came back and when he sat on the toilet and retriggered his symptoms and they are now back to his severe as they were at onset. Otherwise he was getting good temporary relief. Tolerating medications well with no significant side effects. We discussed a transition to oral therapy and then very close follow-up in the outpatient setting. He is amenable to the plan Physical Exam Physical Exam: GENERAL APPEARANCE: A&O. Lying on right side in stretcher. NAD. SKIN: Normal color without rashes or lesions. Normal turgor. HEENT: Head AT/NC. Buccal mucosa is moist and pink. HEART: RRR without m/g/r. LUNGS: Normal inspiratory effort. CTA without w/r/r. ABDOMEN: No guarding or rigidity. Normoactive BS in all four quadrants. Abdomen soft and NT. MSK: No bony gross/deformities throughout. ROM intact. TTP left paraspinal muscles. +5 MS in bilateral lower ext with intact sensation. EXTREMITIES: No edema, No peripheral cyanosis. Neuro: CN 2-12 grossly intact. No focal neuro deficits, Straight leg test positive on the left PSYCHIATRIC: Normal affect. Eye contact is good. Speech is normal rate and content. Responses are appropriate. Results & Data Results & Data Vital Signs (Past 12 Hours) Vital Signs Temp Pulse Resp BP Pulse Ox O2 Del Method 03/28/25 14:57 37 C 58 L 16 128/61 95 Room Air 03/28/25 07:30 37 C 56 L 18 114/68 95 Room Air Laboratory Results 03/28/25 03/28/25 03/28/25 16:22 11:42 07:28 WBC RBC Hgb Hct MCV MCH MCHC RDW Std Deviation RDW Coeff of Ruslan Plt Count MPV Immature Gran % (Auto) Neut % (Auto) Lymph % (Auto) [place] % (Auto) Eos % (Auto) Baso % (Auto) Neut # (Auto) Lymph # (Auto) [place] # (Auto) Eos # (Auto) Baso # (Auto) Immature Gran # (Auto) ESR POC Glucose 166 H 160 H 165 H Magnesium C-Reactive Protein Procalcitonin 03/28/25 03/27/25 05:29 20:35 WBC 14.38 H RBC 5.24 Hgb 15.2 Hct 45.2 MCV 86.3 MCH 29.0 MCHC 33.6 RDW Std Deviation 39.8 RDW Coeff of Ruslan 12.7 Plt Count 269 MPV 10.3 Immature Gran % (Auto) 1.3 Neut % (Auto) 70.5 Lymph % (Auto) 16.5 [place] % (Auto) 11.0 Eos % (Auto) 0.4 Baso % (Auto) 0.3 Neut # (Auto) 10.14 H Lymph # (Auto) 2.37 [place] # (Auto) 1.58 H Eos # (Auto) 0.06 Baso # (Auto) 0.05 Immature Gran # (Auto) 0.18 ESR 10 POC Glucose 170 H Magnesium 2.4 C-Reactive Protein < 0.50 Procalcitonin 0.05 PG Care Time/CCT Total # of Minutes Spent Total Time Spent with Patient: Total time spent is greater than 50% in coordination of care (as documented) at patient's floor/unit and/or counseling patient: Coding Level of Care Code 11749 SUB INP/OBS CARE 2/35MIN Diagnoses Low back pain M54.50 Acute on chronic back pain M54.9; G89.29 Lumbar radiculopathy M54.16 Lumbar spondylosis M47.816 Type 2 diabetes mellitus with obesity E11.69; E66.9 Hyperlipidemia E78.5 Hypertension I10 Acute kidney injury N17.9
[2025-03-28] MEDS: MAGNESIUM HYDROXIDE SUSP 30 ML UDC PO PRN (20:04)
[2025-03-28] MEDS: REMOVE LIDODERM PATCH SCH (20:59)
[2025-03-29] MEDS: LANTUS PER UNIT CHARGE SC SCH (09:01)
[2025-03-29] MEDS: HYDROmorphone INJ 1 MG/ML SYRINGE IV PRN (09:01)
[2025-03-29] MEDS: KETOROLAC TROMETHAMINE 15 MG/ML VIAL IV ONE (11:53)
--- NOTE | 2025-03-29 14:22 | Pharmacy Report ---
Pharmacy Glycemic Short Note 2 - Date of Service March 29, 2025 - Glycemic Short BSG Results (Last 24 hours): 03/28/25 03/28/25 03/29/25 16:22 20:31 07:32 POC Glucose 166 H 135 H 119 H 03/29/25 11:19 POC Glucose 154 H OUTPATIENT ANTIDIABETIC REGIMEN: * Jardiance 25mg PO daily * Januvia 100mg PO Q PM * metformin ER 1000mg PO BID HbA1c: 7.7% on 01/12/2025 ASSESSMENT: 03/28 * BSGs have been well controlled on current regimen. * Fasting 119 mg/dL- will adjust to 18 units qAM basal and monitor * Continues on dex 4 mg PO. Will continue current novolog parameters 03/27 * Himanshu is a 59 year old male who is being admitted today for increasing/ uncontrolled pain in his lower back. Pharmacy has been consulted for glycemic management while he is admitted. * BSG on admit was 151mg/dL. He received dexamethasone 10mg IM x 1 this morning at 0738 an is ordered a dose of methylprednisolone 80mg iv x 1 at 1800 tonight. A weight based bolus insulin regimen with a stress of 2 was started and a Lantus scale (0, 10, or 15 units depending on on BSG was added.) PLAN FOR INPATIENT GLYCEMIC CONTROL: * Hold outpatient oral diabetes medications * Basal insulin * Lantus 18 units qAM * Bolus insulin * NovoLog per scale ACHS or Q6hrs while NPO * Goal Range: Low 120 mg/dL - High 150 mg/dL * Correction Factor: 20 mg/dL/unit * Nutritional / Prandial insulin per carb ratio of 1 unit per 7 grams CHO consumed
--- NOTE | 2025-03-29 14:55 | Hospitalist Progress Note ---
Date of Service March 29, 2025 Assessment & Plan (1) Low back pain: (2) Acute on chronic back pain: (3) Lumbar radiculopathy: (4) Lumbar spondylosis: (5) Type 2 diabetes mellitus with obesity: (6) Hyperlipidemia: (7) Hypertension: (8) Acute kidney injury: Plan Mr. Bañuelos is a 59 year old male patient that presented to [facility] emergency department with c/o worsening intractable lumbar back pain with know lumbar facet arthropathy. 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 Admitted for pain control. ##lumbar back pain, acute on chronic/lumbar sacral facet arthropathy - acute, severe and persistent exacerbation - no significant structural abnormality noted on CT - no cauda equina/saddle anesthesia symptoms - Lumbar MRI 02/04/25 degenerative changes most pronounced @ L3-L4 with demonstrated moderate BL neural foraminal opening with disc bulge abutting the transiting BL L4 nerve roots - baclofen TID, Lidocaine patch, Tylenol prn, added gabapentin 300mg TID on 03/27 -Reasonable relief with IV Dilaudid 35 doses over 24 hours. - Oxycodone 10 mg every 4 hours as needed, continue with breakthrough Dilaudid 1 mg every 3 hours-as needed after lidocaine, Tylenol, baclofen, Gabapentin have been utilized - No high risk elements to his history, will require close O/P follow-up for medication mgmt0 -Said he re aggravated the pain while attempting to sit on the toilet yesterday -Wants a spine surgery 2nd opinion, however, no spine surgery service this week ##T2DM last HbA1c 7.7 on 01/12/25 hold oral hypoglycemic agents BSG ACHS SSI-->Goal Range: Low 120 mg/dL - High 150 mg/dL, Correction Factor: 25 mg/dL/unit, Nutritional / Prandial insulin per carb ratio of 1 unit per 8 grams CHO consumed - Generally within goal range, monitor with ongoing decadron ##SID baseline Cr 1.00~Cr 1.51 on admission gentle hydration with LR at 125/hr X 1 avoid nephrotoxic agents, hold ACEi -normalizing, recheck in AM ##HTN hold ACEi d/t Cr - BP within range ##HLD hold home statin Disposition: Admit for ongoing parenteral IV narcotic pain medication titration Diet: CC DVT proph: low risk, SCDs Code status: FULL CODE Admission and Anticipated Discharge Date Admission Date: March 27, 2025 Subjective Patient seen and examined, lying in bed still has a lot of back pain Review of Systems Review of Systems: All systems reviewed are negative, apart from the ones contained in the history. Physical Exam Physical Exam: The patient is awake, alert and oriented 3, well developed and well nourished, normocephalic and atraumatic, lying in bed and in no acute distress. HEENT--PERRL, EOMI, mucous membranes and oropharynx mildly dry Neck--supple. No JVD. No bruits. Thyroid normal, trachea midline, no adenopathy. Heart--normal S1 and S2. No murmurs, rubs or gallops. Lungs--clear bilaterally, no respiratory distress, no accessory muscle use. Abdomen--normal bowel sounds and soft. Extremities--no cyanosis or clubbing. No edema. Dermatologic--normal skin turgor, normal color, no abnormal lymph nodes, no rash. Neurologic--cranial nerves II through XII grossly intact. Rheumatologic--normal range of motion. Psychiatric--normal affect. Results & Data Results & Data Vital Signs (Past 12 Hours) Vital Signs Temp Pulse Resp BP Pulse Ox O2 Del Method 03/29/25 07:30 97.9 F 60 16 110/68 95 Room Air PG Care Time/CCT Total # of Minutes Spent Total Time Spent with Patient: Total time spent is greater than 50% in coordination of care (as documented) at patient's floor/unit and/or counseling patient: Coding Level of Care Code 86269 SUB INP/OBS CARE 2/35MIN Diagnoses Low back pain M54.50 Acute on chronic back pain M54.9; G89.29 Lumbar radiculopathy M54.16 Lumbar spondylosis M47.816 Type 2 diabetes mellitus with obesity E11.69; E66.9 Hyperlipidemia E78.5 Hypertension I10 Acute kidney injury N17.9 Time Spent (min) 35
--- NOTE | 2025-03-30 11:56 | Hospitalist Progress Note ---
Date of Service March 30, 2025 Assessment & Plan (1) Low back pain: (2) Acute on chronic back pain: (3) Lumbar radiculopathy: (4) Lumbar spondylosis: (5) Type 2 diabetes mellitus with obesity: (6) Hyperlipidemia: (7) Hypertension: (8) Acute kidney injury: Plan Mr. Bañuelos is a 59 year old male patient that presented to [facility] emergency department with c/o worsening intractable lumbar back pain with know lumbar facet arthropathy. 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 Admitted for pain control. ##lumbar back pain, acute on chronic/lumbar sacral facet arthropathy - acute, severe and persistent exacerbation - no significant structural abnormality noted on CT - no cauda equina/saddle anesthesia symptoms - Lumbar MRI 02/04/25 degenerative changes most pronounced @ L3-L4 with demonstrated moderate BL neural foraminal opening with disc bulge abutting the transiting BL L4 nerve roots - baclofen TID, Lidocaine patch, Tylenol prn, added gabapentin 300mg TID on 03/27 - Oxycodone 10 mg every 4 hours as needed, continue with breakthrough Dilaudid 1 mg every 3 hours-as needed after lidocaine, Tylenol, baclofen, Gabapentin have been utilized -Received a dose of IV Toradol, but he said it did not help -Still in a lot of pain -No ortho spine coverage this week -Will consult pain mgt ##T2DM last HbA1c 7.7 on 01/12/25 hold oral hypoglycemic agents BSG ACHS SSI-->Goal Range: Low 120 mg/dL - High 150 mg/dL, Correction Factor: 25 mg/dL/unit, Nutritional / Prandial insulin per carb ratio of 1 unit per 8 grams CHO consumed - Generally within goal range, monitor with ongoing decadron ##SID baseline Cr 1.00~Cr 1.51 on admission gentle hydration with LR at 125/hr X 1 avoid nephrotoxic agents, hold ACEi -normalizing, recheck in AM ##HTN hold ACEi d/t Cr - BP within range ##HLD hold home statin Disposition: Admit for ongoing parenteral IV narcotic pain medication titration Diet: CC DVT proph: low risk, SCDs Code status: FULL CODE Admission and Anticipated Discharge Date Admission Date: March 27, 2025 Subjective Patient seen and examined, lying in bed still has a lot of back pain, said Toradol did not help Review of Systems Review of Systems: All systems reviewed are negative, apart from the ones contained in the history. Physical Exam Physical Exam: The patient is awake, alert and oriented 3, well developed and well nourished, normocephalic and atraumatic, lying in bed and in no acute distress. HEENT--PERRL, EOMI, mucous membranes and oropharynx mildly dry Neck--supple. No JVD. No bruits. Thyroid normal, trachea midline, no adenopathy. Heart--normal S1 and S2. No murmurs, rubs or gallops. Lungs--clear bilaterally, no respiratory distress, no accessory muscle use. Abdomen--normal bowel sounds and soft. Extremities--no cyanosis or clubbing. No edema. Dermatologic--normal skin turgor, normal color, no abnormal lymph nodes, no rash. Neurologic--cranial nerves II through XII grossly intact. Rheumatologic--normal range of motion. Psychiatric--normal affect. Results & Data Results & Data Vital Signs (Past 12 Hours) Vital Signs Temp Pulse Resp BP Pulse Ox O2 Del Method 03/30/25 07:37 97.7 F 56 L 16 110/66 94 Room Air PG Care Time/CCT Total # of Minutes Spent Total Time Spent with Patient: Total time spent is greater than 50% in coordination of care (as documented) at patient's floor/unit and/or counseling patient: Coding Level of Care Code 18265 SUB INP/OBS CARE 2/35MIN Diagnoses Low back pain M54.50 Acute on chronic back pain M54.9; G89.29 Lumbar radiculopathy M54.16 Lumbar spondylosis M47.816 Type 2 diabetes mellitus with obesity E11.69; E66.9 Hyperlipidemia E78.5 Hypertension I10 Acute kidney injury N17.9 Time Spent (min) 35
[2025-03-31] MEDS: POLYETHYLENE (MIRALAX) 17 GM PACK PO PRN (01:20)
[2025-03-31 07:37] VITALS: BP 105/66; PULSE 55; RESP 14; TEMP 99.1; O2SAT 95
--- NOTE | 2025-03-31 09:09 | Pain Management Consultation ---
Date of Consultation March 31, 2025 Assessment & Plan (1) Trochanteric bursitis of left hip: (2) Sacroiliitis: Plan Lumbar MRI was reviewed and does show some disc bulging at L3-L4 and degenerative changes but his pain more so seems related to the left greater trochanteric bursa as well as sacroiliitis rather than a true lumbar radiculopathy. I did offer to perform a left greater trochanteric bursa injection at today's visit. Risks and benefits were reviewed with the patient and he is understanding. He would like to proceed with the procedure. Procedure was performed. Please refer to procedure section for further details. As the pain does seem more so related to the left SI joint rather than lumbar radiculopathy, I will change the scheduled epidural steroid injection for left SI joint injection. Patient and his are in agreement with the plan. He does hope for discharge to home today. GREATER TROCHANTERIC BURSA INJECTION Diagnosis: Greater Trochanteric Bursitis Performed by: Norma Aguilera PA-C Side: left Medications Given: 5 mL 0.5% Ropivacaine MPF 1 mL Kenalog 40mg/mL Prior to starting, the diagnosis and the procedure was reviewed with the patient in detail. Possible risks, complications and alternative therapies were also reviewed. All questions were answered. Informed consent was obtained. Allergies and medication list was reviewed. The hip and surrounding tissues was prepped with a prep consisting of chlorhexidine. Sterile technique was maintained throughout the procedure. Next, a solution containing 1 mL of Kenalog 40mg/mL and 5 mL of 0.50% Ropivacaine was injected via the 22-gauge 1.5 inch needle gradually. Patient did not experience any pain, paresthesia or discomfort throughout the injection period. Adequate hemostasis was noted. A sterile Band-Aid was applied at the injection site. History of Present Illness Attending Physician: Wisam Cruz MD History of Present Illness This is a 59-year-old male that has been seen as a new patient with the [facility] pain clinic on 03/03/2025. At that time he was experiencing pain along the low back going into the left hip and left groin. The pain was thought to be related to the L3-L4 disc bulge and scheduled for a left L3-L4 transforaminal epidural steroid injection in 2 weeks. He was also found to have a slight leg length discrepancy and scheduled with orthotics on 04/12/2025. Since the consultation appointment, there has been communication on how to further improve pain control in the meantime including oral steroids, NSAIDs, muscle relaxers. Despite multiple medications he did come to the [facility] for inpatient pain control. He does take gabapentin 300 mg daily, Decadron 4 mg daily, lidocaine patch daily, baclofen 20 mg 3 times daily, oxycodone 10 mg typically 4 times a day, and IV Dilaudid if needed. He states that the majority of his pain is along the left lateral hip, he approximates about 75%. He has been reporting about 25% left low back pain. No radiation of pain into the groin or down the leg. Pain is rated 8/10 currently. He reports increased pain with laying on the left hip and with prolonged standing. Patient denies any bowel/bladder incontinence, saddle anesthesia, foot drop, falls. He has previously seen Dr. Michaud and told that there is no etiology to offer a ny surgical intervention. Case discussed with Dr. Tanner Allergies Allergy/AdvReac Type Severity Reaction Status Date / Time atorvastatin AdvReac Severe Muscle Pain Verified 03/11/25 08:09 celecoxib AdvReac Intermediate Headache, Verified 03/11/25 08:09 shaking, nausea dulaglutide [From Trulicity] AdvReac Mild Nausea Verified 03/11/25 08:09 linagliptin [From Tradjenta] AdvReac Mild Nausea Verified 03/11/25 08:09 tizanidine AdvReac Verified 03/11/25 08:09 Home Medications Medication Instructions Recorded Confirmed Type acetaminophen 500 mg tablet 1,000 mg (2 x 500 mg) PO TID pain 03/30/24 03/26/25 Rx (Tylenol Extra Strength) 30 days #180 tabs empagliflozin 25 mg tablet 25 mg PO QAM #90 tabs 06/19/24 03/26/25 Rx (Jardiance) lancets 33 gauge (OneTouch Delica #270 ea 06/19/24 03/11/25 Rx Plus Lancet) sitagliptin phosphate 100 mg 100 mg PO QPM 90 days #90 tabs 06/19/24 03/26/25 Rx tablet (Januvia) lisinopril 5 mg tablet 5 mg PO QAM 90 days #90 tabs 09/16/24 03/26/25 Rx pravastatin 20 mg tablet 20 mg PO HS 90 days #90 tabs 10/15/24 03/26/25 Rx blood sugar diagnostic (True #100 ea 12/18/24 03/11/25 Rx Metrix Glucose Test Strip) blood-glucose meter (True Metrix #1 ea 12/18/24 03/11/25 Rx Air Glucose Meter) metformin 500 mg tablet,extended 1,000 mg (2 x 500 mg) PO BID 90 01/04/25 03/26/25 Rx release 24 hr days #360 tabs diclofenac sodium 50 mg 50 mg PO TID #90 tabs 02/12/25 03/26/25 Rx tablet,delayed release baclofen 10 mg tablet 10 mg PO TID PRN muscle spasm #30 03/23/25 03/26/25 Rx tabs methylprednisolone 4 mg tablets in See Rx Instructions .Route 03/23/25 03/26/25 Rx a dose pack (Medrol (Dayday)) .COMPLEX #21 ea Pain History Previous Imaging and Results Imaging: Lumbar spine MRI 02/04/2025: Multilevel degenerative changes most pronounced at L3-L4 which demonstrates moderate central canal narrowing and moderate bilateral neuroforaminal narrowing. The disc bulge abuts the transiting bilateral L4 nerve roots at this level. Patient History Medical History Dyshidrotic eczema Per records Osteoarthritis Hx of syncope 07/2023, evaluated at [facility], unknown etiology > No recurrence/issues since Per [facility] PCP 07/29/23, t/c further evaluation if recurrence occurs Fatty liver History of kidney stones No surgical intervention, pt passed on own Surgical History S/P right unicompartmental knee replacement Right knee unicompartment replacement (01/01/23): SAB at L3-4, 1 attempt + regional at [facility] History of anesthesia reaction "Difficulty waking" after right knee arthroscopy History of tooth extraction History of wisdom tooth extraction x1 only S/P right knee arthroscopy [facility], 2003 Family History Mother Guillain Lorenzana syndrome Diabetes Hyperlipidemia Stroke Father Myocardial infarction Glaucoma Grandfather Prostate cancer Other Coronary heart disease FH: CABG (coronary artery bypass surgery) No family history of adverse response to anesthesia Denies family history of Ovarian cancer Breast cancer Colorectal cancer Social History Smoking Status: Never smoker Second Hand Exposure: No; Do You Dip or Chew Tobacco: No; Tobacco Cessation Education Requested by Patient: No Hx Alcohol Use: No Hx Substance Use: No Preferred Language: Ukrainian Communication Ability: Effective Visual Impairment: No Limitations Hearing Ability: Normal 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 Beliefs That Will Affect Care: None marital status: Current Living Situation: Spouse Current Living Situation Comment: current occupational status: employed Other Information That Helps Us Care for You: No Feels Safe at Home: Yes Safety Concerns: Feels Safe At This Time Childhood Exposure to Second-Hand Smoke: Yes Diet: diabetic caffeine: Yes during the past year weight has: remained stable Dental Care, Regularly: Yes Physical Activity Frequency: Daily Seatbelt Use: always Sunscreen Use: No Assistive Devices: Cane and Walker Physical Exam Physical Exam: GENERAL: This is a 59-year-old male that is laying on his right side in the hospital bed eating breakfast. During the discussion his , Yulisa is on speaker phone per patient request. HEAD/FACE: Normocephalic and atraumatic. EYES: No drainage or conjunctival injection. ENT: Nose without bleeding or discharge. Oral mucosa moist. NECK: Full ROM without apparent pain. No swelling or masses noted. RESPIRATORY: Patient with unlabored breathing. No signs of respiratory distress. CHEST/AXILLA: Chest movement symmetrical. No deformities noted. BACK: Normal lumbar lordosis. No midline or facet joint tenderness. There is moderate tenderness along the left SI joint. No myofascial spasm or trigger points noted. SKIN: [place], warm and dry. No rash noted. MS/EXTREMITY: Full range of motion of the left hip. There is exquisite tenderness along the left greater trochanteric bursa. Negative straight leg raise. Negative leg roll. Positive left-sided Cherelle maneuver, thigh thrust testing, SI compression testing. NEURO: Alert and appears oriented. Speech is fluent. Cranial Nerves are grossly intact. PSYCH: Alert, pleasant, affect is calm
[2025-03-31] MEDS: ROPIVACAINE 0.5% 5 MG/ML 30 ML VIAL ONE (09:17)
[2025-03-31] MEDS: TRIAMCINOLONE ACET 40 MG/ML VIAL ONE (09:17)
--- NOTE | 2025-03-31 09:32 | Hospitalist Progress Note ---
Date of Service March 31, 2025 Assessment & Plan (1) Low back pain: (2) Acute on chronic back pain: (3) Lumbar radiculopathy: (4) Lumbar spondylosis: (5) Type 2 diabetes mellitus with obesity: (6) Hyperlipidemia: (7) Hypertension: (8) Acute kidney injury: Plan Mr. Bañuelos is a 59 year old male patient that presented to [facility] emergency department with c/o worsening intractable lumbar back pain with know lumbar facet arthropathy. Taking oral methylprednisolone for 3 days [employer] with no relief of symptoms. Admitted for pain control. ##lumbar back pain, acute on chronic/lumbar sacral facet arthropathy - acute, severe and persistent exacerbation - no significant structural abnormality noted on CT - no cauda equina/saddle anesthesia symptoms - Lumbar MRI 02/04/25 degenerative changes most pronounced @ L3-L4 with demonstrated moderate BL neural foraminal opening with disc bulge abutting the transiting BL L4 nerve roots -Scheduled for outpatient steroid injection on Apr 17 - However, here in the hospital, on baclofen TID, Lidocaine patch, Tylenol prn, added gabapentin 300mg TID on 03/27 - Oxycodone 10 mg every 4 hours as needed, continue with breakthrough Dilaudid 1 mg every 3 hours-as needed after lidocaine, Tylenol, baclofen, Gabapentin have been utilized -Received a dose of IV Toradol, but he said it did not help -Still in a lot of pain -No ortho spine coverage this week -Pain mgt on board, he may benefit from the steroid injection while here ##T2DM last HbA1c 7.7 on 01/12/25 hold oral hypoglycemic agents BSG ACHS SSI-->Goal Range: Low 120 mg/dL - High 150 mg/dL, Correction Factor: 25 mg/dL/unit, Nutritional / Prandial insulin per carb ratio of 1 unit per 8 grams CHO consumed - Generally within goal range, monitor with ongoing decadron ##ISD baseline Cr 1.00~Cr 1.51 on admission gentle hydration with LR at 125/hr X 1 avoid nephrotoxic agents, hold ACEi -normalizing, recheck in AM ##HTN hold ACEi d/t Cr - BP within range ##HLD hold home statin Disposition: Admit for ongoing parenteral IV narcotic pain medication titration Diet: CC DVT proph: low risk, SCDs Code status: FULL CODE Admission and Anticipated Discharge Date Admission Date: March 27, 2025 Subjective Patient seen and examined, lying in bed still has a lot of back pain, said Toradol did not help Review of Systems Review of Systems: All systems reviewed are negative, apart from the ones contained in the history. Physical Exam Physical Exam: The patient is awake, alert and oriented 3, well developed and well nourished, normocephalic and atraumatic, lying in bed and in no acute distress. HEENT--PERRL, EOMI, mucous membranes and oropharynx mildly dry Neck--supple. No JVD. No bruits. Thyroid normal, trachea midline, no adenopathy. Heart--normal S1 and S2. No murmurs, rubs or gallops. Lungs--clear bilaterally, no respiratory distress, no accessory muscle use. Abdomen--normal bowel sounds and soft. Extremities--no cyanosis or clubbing. No edema. Dermatologic--normal skin turgor, normal color, no abnormal lymph nodes, no rash. Neurologic--cranial nerves II through XII grossly intact. Rheumatologic--normal range of motion. Psychiatric--normal affect. Results & Data Results & Data Vital Signs (Past 12 Hours) Vital Signs Temp Pulse Resp BP Pulse Ox O2 Del Method 03/31/25 07:36 99.1 F 55 L 14 105/66 95 Room Air 03/30/25 23:00 97.7 F 70 16 119/76 96 Room Air PG Care Time/CCT Total # of Minutes Spent Total Time Spent with Patient: Total time spent is greater than 50% in coordination of care (as documented) at patient's floor/unit and/or counseling patient: Coding Level of Care Code 00980 SUB INP/OBS CARE 2/35MIN Diagnoses Low back pain M54.50 Acute on chronic back pain M54.9; G89.29 Lumbar radiculopathy M54.16 Lumbar spondylosis M47.816 Type 2 diabetes mellitus with obesity E11.69; E66.9 Hyperlipidemia E78.5 Hypertension I10 Acute kidney injury N17.9 Time Spent (min) 35
[2025-03-31] MEDS: GABAPENTIN 300 MG CAP PO ONE (10:12)
--- NOTE | 2025-03-31 10:51 | Pharmacy Report ---
Pharmacy Glycemic Short Note 2 - Date of Service March 31, 2025 - Glycemic Short BSG Results (Last 24 hours): 03/30/25 03/30/25 03/30/25 11:31 16:45 20:46 POC Glucose 191 H 142 H 143 H 03/31/25 07:11 POC Glucose 121 H OUTPATIENT ANTIDIABETIC REGIMEN: * Jardiance 25mg PO daily * Januvia 100mg PO Q PM * metformin ER 1000mg PO BID HbA1c: 7.7% on 01/12/2025 ASSESSMENT: 03/31: * Geovanni received 56 units of insulin yesterday, 18 of which were basal. BSGs were: [phone] mg/dL. * Fasting BSG is 121 mg/dL this AM, controlled. Continues on Dexamethasone 4 mg PO daily. Tolerating T2DM diet. * Carb ratio was tightened yesterday afternoon. Seems to be helping control postprandials. No changes to insulin regimen today. 03/28 * BSGs have been well controlled on current regimen. * Fasting 119 mg/dL- will adjust to 18 units qAM basal and monitor * Continues on dex 4 mg PO. Will continue current novolog parameters 03/27 * Geovanni is a 59 year old male who is being admitted today for increasing/ un controlled pain in his lower back. Pharmacy has been consulted for glycemic management while he is admitted. * BSG on admit was 151mg/dL. He received dexamethasone 10mg IM x 1 this morning at 0738 an is ordered a dose of methylprednisolone 80mg iv x 1 at 1800 tonight. A weight based bolus insulin regimen with a stress of 2 was started and a Lantus scale (0, 10, or 15 units depending on on BSG was added.) PLAN FOR INPATIENT GLYCEMIC CONTROL: * Hold outpatient oral diabetes medications * Basal insulin * Lantus 18 units SC AM * Bolus insulin * NovoLog per scale ACHS or Q6hrs while NPO * Goal Range: Low 120 mg/dL - High 150 mg/dL * Correction Factor: 20 mg/dL/unit * Nutritional / Prandial insulin per carb ratio of 1 unit per 6 grams CHO consumed
[2025-03-31] MEDS: KETOROLAC TROMETHAMINE 15 MG/ML VIAL IV ONE (11:49)
--- NOTE | 2025-03-31 14:30 | Discharge Summary ---
Date of Service March 31, 2025 Admission HPI Per Admitting Provider Patient is 59 year old male with past medical history significant for T2DM, sacroiliitis, lumbosacral facet arthropathy, intervertebral disc degeneration, left hip bursitis, HLD, HTN, and s/p left TKA that presents with 2 day hx of worsening lumbar associated back pain with left hip/groin radiation. He has been taking oral methylprednisolone prescribed by pain management for the past 72 hours and has had minimal relief of his pain. Pain is localized to lumbar area and he describes a stabbing sensation that radiates into the left hip/groin area with additional radiation into the left thigh at time. Aggravating factors which reproduce his lower back pain are movement and for the past 48 hours he has been mostly lying in bed due to the severity of the pain. He has also been taking baclofen PRN and diclofenac. He was recently seen by Dr. Michaud for chronic lumbar pain and underwent MRI lumbar imaging that revealed degenerative changes most pronounced @ L3-L4 with demonstrated moderate BL neural foraminal opening with disc bulge abutting the transiting BL L4 nerve roots. Recommendations at that time to continue with stretching, PT and oral medication modalities with Diclofenac, Tylenol, etc. He was seen by pain management recently and is scheduled for L3-L4 epidural steroid injection in a few weeks. He denies LUTS, n/v/d, cauda equina red flag symptoms, motor strength weakness in BL lower legs, fever, chills, recent mechanism of fall to lumbar area or recent surgical intervention to lumbar area. After lengthy discussion with the patient regarding his resuscitative wishes, he elects to be a full code while hospitalized. Admission Exam (Per Admitting) Constitutional The patient is awake, alert and oriented 3, well developed and well nourished, normocephalic and atraumatic, lying in bed and in no acute distress. HEENT--PERRL, EOMI, mucous membranes and oropharynx mildly dry Neck--supple. No JVD. No bruits. Thyroid normal, trachea midline, no adenopathy. Heart--normal S1 and S2. No murmurs, rubs or gallops. Lungs--clear bilaterally, no respiratory distress, no accessory muscle use. Abdomen--normal bowel sounds and soft. Extremities--no cyanosis or clubbing. No edema. Dermatologic--normal skin turgor, normal color, no abnormal lymph nodes, no rash. Neurologic--cranial nerves II through XII grossly intact. Rheumatologic--normal range of motion. Psychiatric--normal affect. Discharge Data Consultations 03/26/25 11:37 ED Decision to Admit Stat 03/30/25 10:18 Consult Pain Management Routine Hospital Course (1) Low back pain: (2) Acute on chronic back pain: (3) Lumbar radiculopathy: (4) Lumbar spondylosis: (5) Type 2 diabetes mellitus with obesity: (6) Hyperlipidemia: (7) Hypertension: (8) Acute kidney injury: Plan Mr. Bañuelos is a 59 year old male patient that presented to [facility] emergency department with c/o worsening intractable lumbar back pain with know lumbar facet arthropathy. Taking oral methylprednisolone for 3 days [employer] with no relief of symptoms. Admitted for pain control. ##lumbar back pain, acute on chronic/lumbar sacral facet arthropathy - acute, severe and persistent exacerbation - no significant structural abnormality noted on CT - no cauda equina/saddle anesthesia symptoms - Lumbar MRI 02/04/25 degenerative changes most pronounced @ L3-L4 with demonstrated moderate BL neural foraminal opening with disc bulge abutting the transiting BL L4 nerve roots -Scheduled for outpatient steroid injection on Apr 17 - However, here in the hospital, on baclofen TID, Lidocaine patch, Tylenol prn, added gabapentin 300mg TID on 03/27 - Oxycodone 10 mg every 4 hours as needed, continue with breakthrough Dilaudid 1 mg every 3 hours-as needed after lidocaine, Tylenol, baclofen, Gabapentin have been utilized -Received a dose of IV Toradol, but he said it did not help -Still in a lot of pain -No ortho spine coverage this week -He got steroid injection for his trochanteric bursitis and felt better -He expressed a willingness to be discharged ##T2DM last HbA1c 7.7 on 01/12/25 hold oral hypoglycemic agents BSG ACHS SSI-->Goal Range: Low 120 mg/dL - High 150 mg/dL, Correction Factor: 25 mg/dL/unit, Nutritional / Prandial insulin per carb ratio of 1 unit per 8 grams CHO consumed - Generally within goal range, monitor with ongoing decadron ##SID baseline Cr 1.00~Cr 1.51 on admission gentle hydration with LR at 125/hr X 1 avoid nephrotoxic agents, hold ACEi -normalizing, recheck in AM ##HTN hold ACEi d/t Cr - BP within range ##HLD hold home statin Disposition: d/c home Diet: CC DVT proph: low risk, SCDs Code status: FULL CODE Coding Level of Care Code 12154 INP/OBS DISCH >30 MIN Diagnoses Low back pain M54.50 Acute on chronic back pain M54.9; G89.29 Lumbar radiculopathy M54.16 Lumbar spondylosis M47.816 Type 2 diabetes mellitus with obesity E11.69; E66.9 Hyperlipidemia E78.5 Hypertension I10 Acute kidney injury N17.9 Time Spent (min) 35
== END 2025-03-31 16:00 | disposition home or self-care (01) | DRG 552 ==
LOC: 3E 05:53 → ED 05:53 → 3E 13:45 → SUATTDRO 03-27 15:14